=== PATIENT | female | born 1955 | race Caucasian/White ===

== ENCOUNTER 2019-10-24 16:27 | Inpatient (IN) ==
[2019-10-24] MEDS ORDERED: ONDANSETRON INJ 2 MG/ML 2 ML VIAL IV STA (17:01)
[2019-10-24] MEDS ORDERED: SODIUM CHLORIDE 0.9% 1000ML 1,000 ML IV ONE (17:01)
[2019-10-24] MEDS ORDERED: SUCRALFATE 1 GM TAB PO STA (17:01)
[2019-10-24] MEDS ORDERED: FAMOTIDINE 40 MG TABLET PO ONE (17:01)
[2019-10-24] MEDS ORDERED: GI COCKTAIL ED USE PO ONE (17:01)
[2019-10-24 17:09] LABS: Basophils # (auto) 0.02 K/uL (0-0.2); Basophils % (auto) 0.2 %; Eosinophils # (auto) 0.03 K/uL (0-0.5); Eosinophils % (auto) 0.2 %; Hematocrit (blood only) 43.6 % (37-47); Hemoglobin 15.2 g/dL (12.0-16.0); Immature Granulocytes # (auto) 0.04 K/uL (0.00-0.02); Immature Granulocytes % (auto) 0.3 %; Lymphocytes # (auto) 2.48 K/uL (1.2-3.4); Lymphocytes % (auto) 20.3 %; Mean Corpuscular Hemoglobin 32.3 pg (25-34); Mean Corpuscular Hgb Conc 34.9 g/dL (32-36); Mean Corpuscular Volume 92.6 fL (80-100); Mean Platelet Volume 11.4 fL (7.4-10.4); Monocytes # (auto) 1.64 K/uL (0.11-0.59); Monocytes % (auto) 13.4 %; Neutrophils # (auto) 8.03 K/uL (1.4-6.5); Neutrophils % (auto) 65.6 %; Platelet Count 217 K/uL (130-400); RDW Coefficient of Variation 13.5 % (11.5-14.5); RDW Standard Deviation 46.1 fL (36.4-46.3); Red Blood Count 4.71 M/uL (4.2-5.4); White Blood Count 12.24 K/uL (4.8-10.8)
[2019-10-24 17:10] LABS: Appearance Urine Cloudy (Clear); Bilirubin Urine Negative (Negative); Blood Urine Trace (Negative); Color Urine Yellow; Glucose Urine UA Negative (Negative); Ketones Urine Negative (Negative); Leukocyte Esterase Urine Negative (Negative); Nitrite Urine Negative (Negative); Specific Gravity Urine 1.015 (1.000-1.030); Urobilinogen Urine Negative (Negative); pH Urine 8.5 (4.5-7.5)
[2019-10-24 17:15] LABS: Protein Urine Negative (Negative); Sulfosalicylic Acid Urine Negative (Negative)
[2019-10-24 17:17] LABS: Alanine Aminotransferase 25 U/L (12-78); Aspartate Aminotransferase 15 U/L (15-37); BUN Creatinine Ratio 24.3 (10-20); Bacteria Urine 1+ (Negative); Blood Urea Nitrogen 23 mg/dl (7-18); Calcium 10.2 mg/dl (8.5-10.1); Carbon Dioxide 28 mmol/L (21-32); Chloride 103 mmol/L (98-107); Creatinine Clr Calc Pharmacy 43.6 ml/min; Est GFR (African American) 73.5; Est GFR (Non-African American) 63.4; Glucose 112 mg/dl (70-99); Lipase 202 U/L (73-393); RBC Urine 0-4 /hpf (0-4); Sodium 137 mmol/L (136-145); WBC Urine 0-5 /hpf (0-5)
[2019-10-24 17:22] LABS: Albumin Globulin Ratio 1.1 (0.9-2); Alkaline Phosphatase 87 U/L (45-117); Bilirubin,Total 0.4 mg/dl (0.2-1); Creatine Kinase 129 U/L (26-192); Creatine Kinase MB < 1.0 ng/ml (0.5-3.6); Globulin 3.7 gm/dl (2.5-4.0); Total Protein 7.7 gm/dl (6.4-8.2); Troponin I < 0.015 ng/ml (0-0.045)
[2019-10-24 17:29] LABS: iSTAT Creatinine 0.9 mg/dl (0.6-1.3); iSTAT Hemoglobin 13.9 g/dl (12.0-16.0); iSTAT Ionized Calcium 1.3 mmol/l (1.12-1.32); iSTAT Potassium 2.9 mEq/L (3.3-5.0)
[2019-10-24] MEDS ORDERED: POTASSIUM CHLORIDE 20 MEQ TABCR PO STA ×2 (17:30→19:57)
[2019-10-24] MEDS ORDERED: cefTRIAXone SODIUM 2,000 MG/70 ML BAG IV STA (17:40)
--- NOTE | 2019-10-24 17:51 | XRay Report ---
XR chest 1V portable CLINICAL HISTORY: 64 years-old Female presenting with Chest Pain. TECHNIQUE: Portable upright AP view of the chest was obtained. COMPARISON: None. FINDINGS: Atherosclerosis of the aortic arch. Cardiac silhouette normal in size. No focal opacity. No large eff usion or pneumothorax. Osseous structures normal. Upper abdomen normal. IMPRESSION: 1. No acute cardiopulmonary disease. Electronically signed by: Eron Tong M.D. 10/24/2019 5:50 PM
[2019-10-24] MEDS: POTASSIUM CHLORIDE / WTR 10 MEQ/100 ML PLCT IV SCH ×2 (18:00→19:17)
[2019-10-24] MEDS ORDERED: OPTIRAY 320 125ml IV PRN ×2 (19:21→21:49)
--- NOTE | 2019-10-24 19:50 | CT Scan Report ---
CT angio chest PE protocol CLINICAL HISTORY: 64 years-old Female presenting with atypical chest pain, clinical concern for pulmo nary embolus. TECHNIQUE: Multidetector CT angiography of the chest was performed after administration of intravenou s contrast. 3-D volumetric and/or maximum intensity projection (MIP) images were subsequently reconst ructed for review. IV contrast: 118 mL of Optiray 320. One or more dose lowering techniques were used consistent with the principles of ALARA (as low as reasonably achievable), including automatic expos ure control, mA or kV adjustment to individual patient size, and/or use of iterative reconstruction. COMPARISON: None. CT DOSE (mGy.cm): The estimated cumulative dose is 486.72 mGy.cm. FINDINGS: Electric Welder topogram: Unremarkable. Pulmonary vasculature: The study is adequate for assessment of the pulmonary vascular tree. No filling defect within the pul monary arteries to suggest embolus. Main pulmonary artery is not enlarged. No flattening of the inter ventricular septum. No intracardiac filling defect. No reflux of contrast into the hepatic veins. Remaining chest: Soft tissues: Normal thyroid and thoracic inlet. No axillary, supraclavicular, mediastinal, or hilar lymphadenopathy. Normal aorta. Normal heart size. No pericardial or pleural effusion. Trace hiatal he rnia. Suspected extensive submucosal edema and wall thickening of the stomach. Mild wall thickening o f the distal esophagus is also suggested. Lungs and airways: No pneumothorax. There is patent. Diffuse moderate bronchial wall thickening. Pulm onary arteries are not significantly enlarged relative to adjacent bronchi. No interlobular septal th ickening. Trace centrilobular upper lobe predominant emphysema. No focal infiltrate or nodule. Musculoskeletal: Normal osseous structures. IMPRESSION: 1. No evidence of pulmonary embolus. 2. Emphysema. 3. Diffuse bronchial wall thickening could relate to bronchitis in the setting of smoking related david ng injury or an infectious bronchitis or reactive airways disease. Electronically signed by: Eorn Tong M.D. 10/24/2019 7:48 PM
[2019-10-24] MEDS ORDERED: METOCLOPRAMIDE HCL INJ 5 MG/ML 2 ML VIAL IV STA (19:57)
--- NOTE | 2019-10-24 19:58 | CT Scan Report ---
CT abd pelvis IV con only CLINICAL HISTORY: 64 years-old Female presenting with Pt c/o abd pain. TECHNIQUE: Multidetector CT of the abdomen and pelvis was performed after the administration of intra venous contrast. IV contrast: 118 mL of Optiray 320. One or more dose lowering techniques were used c onsistent with the principles of ALARA (as low as reasonably achievable), including automatic exposur e control, mA or kV adjustment to individual patient size, and/or use of iterative reconstruction. COMPARISON: None. CT DOSE (mGy.cm): The estimated cumulative dose is 486.72. FINDINGS: S3B Multi Sensor Operator topogram: Unremarkable. Lung bases: Normal heart size. No pericardial or pleural effusion. No focal infiltrate or nodule at t he lung bases. Mild bronchial wall thickening. Liver: Normal morphology. Focal hypodensity along the fissure for the ligament teres likely perfusion al variation or focal fat. Patent hepatic vasculature. Biliary: No intrahepatic or extrahepatic biliary ductal dilatation. Normal gallbladder. Pancreas: Normal. Spleen: Normal. Adrenal glands: Normal. Kidneys and ureters: Normal. No hydronephrosis. Bladder: Circumferential bladder wall thickening. Pelvic organs: Uterus and ovaries normal. Bowel: Mild diverticulosis in the distal descending and proximal sigmoid colon. No wall thickening or pericolonic inflammatory change. Wall thickening of the ascending colon is suggested. The appendix i s normal. No bowel obstruction. Exuberant wall thickening of the stomach diffusely with mucosal hyper emia. The rugal folds are very large. Peritoneal cavity: No free fluid or intraperitoneal gas. Lymph nodes: No enlarged lymph nodes in the abdomen or pelvis. Vasculature: Atherosclerosis of the normal caliber abdominal aorta. IVC patent. Abdominal wall: Normal. Musculoskeletal: Normal. IMPRESSION: 1. Extensive gastric wall thickening and submucosal edema consistent with gastritis. Differential co nsiderations include Menetrier disease or gastric lymphoma. Gastroenterology consultation to be consi dered for possible nonurgent EGD. 2. Wall thickening of the ascending colon is also present to a much more limited extent and severity . This is most likely related, which could favor an infectious or inflammatory etiology to the gastri tis. 3. Circumferential bladder wall thickening could be due to underdistention or cystitis. Correlate urinalysis. 4. Bronchitis at the lung bases. Electronically signed by: Eron Tong M.D. 10/24/2019 7:57 PM
[2019-10-24] MEDS ORDERED: POTASSIUM CHLORIDE 20 MEQ/15 ML UDC PO STA (20:11)
[2019-10-24] MEDS ORDERED: LORazepam 2 MG/4 ML VIAL ONE ×2 (21:44→21:48)
[2019-10-24] MEDS ORDERED: LORazepam 2 MG/4 ML VIAL IV STA (21:47)
--- NOTE | 2019-10-24 22:13 | CT Scan Report ---
CT head/brain wo con CLINICAL HISTORY: 64 years-old Female presenting with Stroke evaluation, new onset seizures, inabilit y to see. TECHNIQUE: Multidetector CT imaging of the head was performed without the use of intravenous contrast . IV contrast: None. One or more dose lowering techniques were used consistent with the principles of ALARA (as low as reasonably achievable), including automatic exposure control, mA or kV adjustment t o individual patient size, and/or use of iterative reconstruction. COMPARISON: None. CT DOSE (mGy.cm): The estimated cumulative dose is 1114.73. FINDINGS: Antique Dealer topogram: Unremarkable. Ventricles and sulci normal in size. Limited evaluation for hemorrhage given residual intravascular c ontrast from the recent contrast load. Hyperattenuation within the sulci at the right frontoparietal vertex is therefore indeterminate (series 2 image 25). Similar findings elsewhere suggest that this r epresents intravascular contrast. Brain parenchyma normal in appearance with preserved trivedi-white dif ferentiation. No acute territorial infarct. No mass effect or midline shift. No extra-axial fluid col lection. Paranasal sinuses and mastoid air cells clear. Calvarium intact. IMPRESSION: 1. Limited evaluation by the recent contrast load. No gross acute intracranial pathology. A follow-u p noncontrast CT head is recommended depending on the level of clinical concern in 12 to 24 hours to allow sufficient excretion of contrast from the vasculature to improve sensitivity of the exam. Electronically signed by: Eron Tong M.D. 10/24/2019 10:12 PM
--- NOTE | 2019-10-24 22:20 | CT Scan Report ---
CT angio head w con CLINICAL HISTORY: 64 years-old Female presenting with Pt unable to see. TECHNIQUE: Multidetector CT angiography of the head was performed after the administration of intrave nous contrast. 3-D volumetric and/or maximum intensity projection (MIP) images were subsequently davina nstructed for review. IV contrast: 118 mL of Optiray 320. One or more dose lowering techniques were u sed consistent with the principles of ALARA (as low as reasonably achievable), including automatic ex posure control, mA or kV adjustment to individual patient size, and/or use of iterative reconstructio n. COMPARISON: None. CT DOSE (mGy.cm): The estimated cumulative dose is 1114.73 mGy.cm. FINDINGS: Film Developer topogram: Unremarkable. Anterior circulation: Intracranial portions of the internal carotid arteries patent to the level of t he termini. Anterior cerebral arteries patent. Middle cerebral arteries patent. Anterior communicatin g artery patent. Posterior circulation: Codominant vertebral arteries. Intradural portions of the vertebral arteries p atent. Posterior inferior cerebellar arteries patent. Basilar artery patent. Anterior inferior cerebe llar arteries poorly visualized. Superior cerebellar arteries patent. Posterior cerebral arteries pat ent. Posterior communicating arteries patent. Dural venous sinuses: Patent. Asymmetric early opacification of the left cavernous sinus. No abnormal distention of the superior ophthalmic veins. Other: Allowing for the phase of contrast, brain parenchyma within normal limits. Calvarium intact. IMPRESSION: 1. No evidence of aneurysm, focal vessel occlusion, or significant stenosis of the intracranial parker josias. 2. Asymmetric early opacification of the left cavernous sinus. No additional findings to suggest the presence of a carotid cavernous fistula. This may represent normal variation with early filling. Cor relate clinically. Electronically signed by: Eron Tong M.D. 10/24/2019 10:19 PM
--- NOTE | 2019-10-24 22:25 | CT Scan Report ---
CT angio neck with con CLINICAL HISTORY: 64 years-old Female presenting with Pt unable to see, new onset seizure. TECHNIQUE: Multidetector CT angiography of the neck was performed after the administration of intrave nous contrast. 3-D volumetric and/or maximum intensity projection (MIP) images were subsequently davina nstructed for review. IV contrast: 118 mL of Optiray 320. One or more dose lowering techniques were u sed consistent with the principles of ALARA (as low as reasonably achievable), including automatic ex posure control, mA or kV adjustment to individual patient size, and/or use of iterative reconstructio n. Stenosis measurements were based on NASCET-like criteria (distal lumen diameter as the denominator for stenosis measurement). COMPARISON: None. CT DOSE (mGy.cm): The estimated cumulative dose is 1114.73. FINDINGS: Recruiting And Selection Consultant topogram: Unremarkable. Aortic arch: Normal three-vessel aortic arch with patent origins of the branch vessels. Innominate artery: Patent. Right subclavian artery: Patent. Right common carotid artery: Patent. Right internal and external carotid arteries: Right carotid bifurcation with trace calcified and nonc alcified atherosclerotic plaque. This does not result in significant stenosis. Right internal and ext ernal carotid arteries widely patent. Left common carotid artery: Patent. Left internal and external carotid arteries: Left carotid bifurcation patent. Left internal and exter nal carotid arteries widely patent. Left subclavian artery: Patent. Vertebral arteries: Codominant vertebral arteries. Origins and courses of the bilateral vertebral art eries patent. Other: Limited intracranial evaluation within normal limits. Soft tissues of the neck normal allowing for the phase of contrast. Normal cervical spine. Mild bronchial wall thickening and trace emphysema at the lung apices. This likely represents smoking-related lung injury. IMPRESSION: 1. No evidence of dissection, focal vessel occlusion, or significant stenosis of the cervical arteri es. Electronically signed by: Eron Tong M.D. 10/24/2019 10:24 PM
--- NOTE | 2019-10-24 23:43 | History & Physical Report ---
Date of Service October 24, 2019 Assessment & Plan (1) Observed seizure-like activity: Patient was noted by ED staff to have seizure-like activity as she is being readied for discharge. Her notes that she had abnormal vision as 1 of the reasons for bringing her into the ED, but could not specify exactly what the abnormality was. CT of head, CTA head and neck are all normal. We will place order for MRI of brain without contrast and EEG for the morning. Patient has received Keppra IV in the ED. We will hold on further treatment until assessed by neurology, will be consulted for the a.m. Present on Admission?: Yes (2) GERD (gastroesophageal reflux disease): N.p.o. Placed on famotidine 20 mg IV every 12 hours. Present on Admission?: Yes (3) Hyperlipidemia: Hold atorvastatin 20 mg p.o. daily while n.p.o. Present on Admission?: Yes (4) Hypothyroidism (acquired): Hold levothyroxine sodium 75 mcg p.o. daily while n.p.o. Present on Admission?: Yes (5) Elevated d-dimer: CT scan of chest negative for PE There is a suggestion of possible emphysema/bronchitis or reactive airway disease. Monitor for aspiration. DuoNeb 4 times daily as needed. Present on Admission?: Yes (6) Vomiting: No further Reglan. Placed on Zofran 4 mg IV every 6 hours as needed nausea and/or vomiting. Present on Admission?: Yes (7) Acute hypokalemia: Placed on NSS + KCl 20 mEq at 100 mL's per hour. Repeat laboratories in a.m. Present on Admission?: Yes History of Present Illness Chief Complaint: The patient initially presented to the emergency department with family member, due to nausea and vomiting over the past 3 days, and change in vision. Primary Care Provider: Jerrod Sherman The patient is a 64-year-old female with a past medical history including GERD, hyperlipidemia and hypothyroidism, who presents to the emergency department with nausea and vomiting over the past 2 to 3 days, with the addition of blurred vision today. At the time of my examination, the patient is obtunded, not responsive, and information is provided by her significant other. Allergies Allergy/AdvReac Type Severity Reaction Status Date / Time metoclopramide [From Reglan] Allergy Seizure Verified 10/24/19 22:55 Home Medications Home Medications Medication Instructions Recorded Confirmed Type atorvastatin 20 mg PO DAILY 10/24/19 10/24/19 History levothyroxine [Synthroid] 75 mcg PO DAILY 10/24/19 10/24/19 History Past Med/Surg History Medical History GERD (gastroesophageal reflux disease) Social History Feels Safe at Home: Yes Smoking Status: Former smoker Review of Systems Review of Systems: Unobtainable due to reduced consciousness Physical Exam Physical Exam: The patient is obtunded, nonresponsive post seizure. Well developed and well nourished, normocephalic and atraumatic, lying in bed and in no acute distress. HEENT--PERRL, EOMI, mucous membranes and oropharynx dry. Neck--supple. No JVD. No bruits. Thyroid normal, trachea midline, no adenopathy. Heart--normal S1 and S2. No murmurs, rubs or gallops. Lungs--clear bilaterally, no respiratory distress, no accessory muscle use. Abdomen--normal bowel sounds and soft. Nontender. Nondistended. Extremities--no cyanosis or clubbing. No edema. Dermatologic--normal skin turgor, normal color, no abnormal lymph nodes, no rash. Neurologic--cranial nerves II through XII grossly intact. Rheumatologic--normal range of motion. Psychiatric--obtunded and unresponsive Results & Data Vital Signs (Past 12 Hours) Vital Signs Temp Pulse Pulse Resp BP BP Pulse Ox 10/24/19 23:18 86 14 107/79 99 10/24/19 22:45 93 H 14 103/69 100 10/24/19 22:31 99 H 14 99 10/24/19 22:30 100 H 13 105/71 99 10/24/19 22:15 108 H 15 114/62 99 10/24/19 22:03 110 H 14 112/50 L 100 10/24/19 22:01 113 H 10/24/19 21:47 117 H 14 158/78 H 98 10/24/19 21:44 144 H 10/24/19 21:37 131/73 10/24/19 20:00 76 20 167/77 H 97 10/24/19 18:30 79 20 166/89 H 97 10/24/19 17:01 99 10/24/19 16:31 98.6 F 84 20 181/87 H 94 Laboratory Results Laboratory Results WBC 12.24 K/uL (4.8-10.8) H 10/24/19 16:50 RBC 4.71 M/uL (4.2-5.4) 10/24/19 16:50 Hgb 15.2 g/dL (12.0-16.0) 10/24/19 16:50 POC Hgb 13.9 g/dl (12.0-16.0) 10/24/19 17:17 Hct 43.6 % (37-47) 10/24/19 16:50 POC Hct 41 % (37-47) 10/24/19 17:17 MCV 92.6 fL (80-100) 10/24/19 16:50 MCH 32.3 pg (25-34) 10/24/19 16:50 MCHC 34.9 g/dL (32-36) 10/24/19 16:50 RDW Std Deviation 46.1 fL (36.4-46.3) 10/24/19 16:50 RDW Coeff of Zeyad 13.5 % (11.5-14.5) 10/24/19 16:50 Plt Count 217 K/uL (130-400) 10/24/19 16:50 MPV 11.4 fL (7.4-10.4) H 10/24/19 16:50 Immature Gran % (Auto) 0.3 % 10/24/19 16:50 Neut % (Auto) 65.6 % 10/24/19 16:50 Lymph % (Auto) 20.3 % 10/24/19 16:50 [place] % (Auto) 13.4 % 10/24/19 16:50 Eos % (Auto) 0.2 % 10/24/19 16:50 Baso % (Auto) 0.2 % 10/24/19 16:50 Immature Gran # (Auto) 0.04 K/uL (0.00-0.02) H 10/24/19 16:50 Neut # (Auto) 8.03 K/uL (1.4-6.5) H 10/24/19 16:50 Lymph # (Auto) 2.48 K/uL (1.2-3.4) 10/24/19 16:50 [place] # (Auto) 1.64 K/uL (0.11-0.59) H 10/24/19 16:50 Eos # (Auto) 0.03 K/uL (0-0.5) 10/24/19 16:50 Baso # (Auto) 0.02 K/uL (0-0.2) 10/24/19 16:50 POC D-Dimer > 450 ng/mlFEU (0-450) H* 10/24/19 17:14 POC Sodium 138 mEq/L (135-144) 10/24/19 17:17 Sodium 137 mmol/L (136-145) 10/24/19 16:50 POC Potassium 2.9 mEq/L (3.3-5.0) L 10/24/19 17:17 Potassium 3.0 mmol/L (3.5-5.1) L 10/24/19 16:50 POC Chloride 101 mEq/L (101-112) 10/24/19 17:17 Chloride 103 mmol/L (98-107) 10/24/19 16:50 Carbon Dioxide 28 mmol/L (21-32) 10/24/19 16:50 POC Total CO2 27 mEq/l (24-31) 10/24/19 17:17 Anion Gap 6.0 (3-11) 10/24/19 16:50 POC Anion Gap 14.0 mmol/L (16-25) L 10/24/19 17:17 POC BUN 22 mg/dl (7-18) H 10/24/19 17:17 BUN 23 mg/dl (7-18) H 10/24/19 16:50 Creatinine 0.96 mg/dl (0.6-1.2) 10/24/19 16:50 POC Creatinine 0.9 mg/dl (0.6-1.3) 10/24/19 17:17 Est Cr Clr Drug Dosing 43.6 ml/min 10/24/19 16:50 Est GFR ( Amer) 73.5 10/24/19 16:50 Est GFR (Non-Af Amer) 63.4 10/24/19 16:50 BUN/Creatinine Ratio 24.3 (10-20) H 10/24/19 16:50 Glucose 112 mg/dl (70-99) H 10/24/19 16:50 POC Glucose 93 (70-99) 10/24/19 21:31 POC Glucose (other) 116 mg/dl (70-99) H 10/24/19 17:17 Calcium 10.2 mg/dl (8.5-10.1) H 10/24/19 16:50 POC Ioniz Calcium Joshua 1.30 mmol/l (1.12-1.32) 10/24/19 17:17 Magnesium 2.3 mg/dl (1.8-2.4) 10/24/19 16:50 Total Bilirubin 0.4 mg/dl (0.2-1) 10/24/19 16:50 AST 15 U/L (15-37) 10/24/19 16:50 ALT 25 U/L (12-78) 10/24/19 16:50 Alkaline Phosphatase 87 U/L (45-117) 10/24/19 16:50 Total Creatine Kinase 129 U/L (26-192) 10/24/19 16:50 CK-MB (CK-2) < 1.0 ng/ml (0.5-3.6) 10/24/19 16:50 CK/CKMB % Calc TNP 10/24/19 16:50 Troponin I < 0.015 ng/ml (0-0.045) 10/24/19 16:50 Total Protein 7.7 gm/dl (6.4-8.2) 10/24/19 16:50 Albumin 4.0 gm/dl (3.4-5.0) 10/24/19 16:50 Globulin 3.7 gm/dl (2.5-4.0) 10/24/19 16:50 Albumin/Globulin Ratio 1.1 (0.9-2) 10/24/19 16:50 Lipase 202 U/L (73-393) 10/24/19 16:50 Urine Color Yellow 10/24/19 16:50 Urine Appearance Cloudy (Clear) A 10/24/19 16:50 Urine pH 8.5 (4.5-7.5) H 10/24/19 16:50 Ur Specific [place] 1.015 (1.000-1.030) 10/24/19 16:50 Urine Protein Negative (Negative) 10/24/19 16:50 Urine Glucose (UA) Negative (Negative) 10/24/19 16:50 Urine Ketones Negative (Negative) 10/24/19 16:50 Urine Blood Trace (Negative) H 10/24/19 16:50 Urine Nitrite Negative (Negative) 10/24/19 16:50 Urine Bilirubin Negative (Negative) 10/24/19 16:50 Urine Urobilinogen Negative (Negative) 10/24/19 16:50 Ur Leukocyte Esterase Negative (Negative) 10/24/19 16:50 Urine RBC 0-4 /hpf (0-4) 10/24/19 16:50 Urine WBC 0-5 /hpf (0-5) 10/24/19 16:50 Ur Epithelial Cells 10-20 /lpf (0-5) H 10/24/19 16:50 Urine Bacteria 1+ (Negative) H 10/24/19 16:50 Diagnostic Findings [place] [phone] CT Scan Report Patient: CLIVE MADSEN Date: 10/24/19 MR#: [id number]: [address] [facility] Acct ID:[id number]: Date: 1955[facility] Zip: [place] [address] Age: 64Location: ED Sex: F Room/Bed: Att Phy:Diagnosis: SICK TO STOMACH, CANT EAT, LIGHTHEADED Rosanne Phy: Hernan Sherman Date: 10/24/19 Fam Phy:Interpreting Phy: Eron Tong MD Admit Phy: Ordering Phy: Panchito Magallon MD cc: ~ CT abd pelvis IV con only CLINICAL HISTORY: 64 years-old Female presenting with Pt c/o abd pain. TECHNIQUE: Multidetector CT of the abdomen and pelvis was performed after the administration of intravenous contrast. IV contrast: 118 mL of Optiray 320. One or more dose lowering techniques were used consistent with the principles of ALARA (as low as reasonably achievable), including automatic exposure control, mA or kV adjustment to individual patient size, and/or use of iterative reconstruction. COMPARISON: None. CT DOSE (mGy.cm): The estimated cumulative dose is 486.72. FINDINGS: Post Framer topogram: Unremarkable. Lung bases: Normal heart size. No pericardial or pleural effusion. No focal infiltrate or nodule at the lung bases. Mild bronchial wall thickening. Liver: Normal morphology. Focal hypodensity along the fissure for the ligament teres likely perfusional variation or focal fat. Patent hepatic vasculature. Biliary: No intrahepatic or extrahepatic biliary ductal dilatation. Normal gallbladder. Pancreas: Normal. Spleen: Normal. Adrenal glands: Normal. Kidneys and ureters: Normal. No hydronephrosis. Bladder: Circumferential bladder wall thickening. Pelvic organs: Uterus and ovaries normal. Bowel: Mild diverticulosis in the distal descending and proximal sigmoid colon. No wall thickening or pericolonic inflammatory change. Wall thickening of the ascending colon is suggested. The appendix is normal. No bowel obstruction. Exuberant wall thickening of the stomach diffusely with mucosal hyperemia. The rugal folds are very large. Peritoneal cavity: No free fluid or intraperitoneal gas. Lymph nodes: No enlarged lymph nodes in the abdomen or pelvis. Vasculature: Atherosclerosis of the normal caliber abdominal aorta. IVC patent. Abdominal wall: Normal. Musculoskeletal: Normal. IMPRESSION: 1. Extensive gastric wall thickening and submucosal edema consistent with gastritis. Differential considerations include Menetrier disease or gastric lymphoma. Gastroenterology consultation to be considered for possible nonurgent EGD. 2. Wall thickening of the ascending colon is also present to a much more limited extent and severity. This is most likely related, which could favor an infectious or inflammatory etiology to the gastritis. 3. Circumferential bladder wall thickening could be due to underdistention or cystitis. Correlate with urinalysis. 4. Bronchitis at the lung bases. Electronically signed by: Eron Tong M.D. 10/24/2019 7:57 PM Dictated: 10/24/191951 Transcribed: 10/24/191951 [place] [phone] XRay Report Patient: CLIVE MADSEN Date: 10/24/19 MR#: [id number]: [address] Acct ID:[id number]: Date: 1955[facility] Zip: [place] [address] Age: 64Location: ED Sex: F Room/Bed: Att Phy:Diagnosis: SICK TO STOMACH, CANT EAT, LIGHTHEADED Rosanne Phy: Hernan Sherman Date: 10/24/19 Fam Phy:Interpreting Phy: Eron Tong MD Admit Phy: Ordering Phy: Panchito Magallon MD cc: ~ XR chest 1V portable CLINICAL HISTORY: 64 years-old Female presenting with Chest Pain. TECHNIQUE: Portable upright AP view of the chest was obtained. COMPARISON: None. FINDINGS: Atherosclerosis of the aortic arch. Cardiac silhouette normal in size. No focal opacity. No large effusion or pneumothorax. Osseous structures normal. Upper abdomen normal. IMPRESSION: 1. No acute cardiopulmonary disease. Electronically signed by: Eron Tong M.D. 10/24/2019 5:50 PM Dictated: 10/24/191748 Transcribed: 10/24/191748 [place], [place] [phone] CT Scan Report Patient: CLIVE MADSEN Date: 10/24/19 MR#: [id number]: [address] Acct ID:[id number]: Date: 1955[facility] Zip: [place] [address] Age: 64Location: ED Sex: F Room/Bed: Att Phy:Diagnosis: SICK TO STOMACH, CANT EAT, LIGHTHEADED Rosanne Phy: Hernan Sherman Date: 10/24/19 [facility] Phy:Interpreting Phy: Eron Tong MD Admit Phy: Ordering Phy: Panchito Magallon MD cc: ~ CT angio chest PE protocol CLINICAL HISTORY: 64 years-old Female presenting with atypical chest pain, clinical concern for pulmonary embolus. TECHNIQUE: Multidetector CT angiography of the chest was performed after administration of intravenous contrast. 3-D volumetric and/or maximum intensity projection (MIP) images were subsequently reconstructed for review. IV contrast: 118 mL of Optiray 320. One or more dose lowering techniques were used consistent with the principles of ALARA (as low as reasonably achievable), including automatic exposure control, mA or kV adjustment to individual patient size, and/or use of iterative reconstruction. COMPARISON: None. CT DOSE (mGy.cm): The estimated cumulative dose is 486.72 mGy.cm. FINDINGS: Post Framer topogram: Unremarkable. Pulmonary vasculature: The study is adequate for assessment of the pulmonary vascular tree. No filling defect within the pulmonary arteries to suggest embolus. Main pulmonary artery is not enlarged. No flattening of the interventricular septum. No intracardiac filling defect. No reflux of contrast into the hepatic veins. Remaining chest: Soft tissues: Normal thyroid and thoracic inlet. No axillary, supraclavicular, mediastinal, or hilar lymphadenopathy. Normal aorta. Normal heart size. No pericardial or pleural effusion. Trace hiatal hernia. Suspected extensive submucosal edema and wall thickening of the stomach. Mild wall thickening of the distal esophagus is also suggested. Lungs and airways: No pneumothorax. There is patent. Diffuse moderate bronchial wall thickening. Pulmonary arteries are not significantly enlarged relative to adjacent bronchi. No interlobular septal thickening. Trace centrilobular upper lobe predominant emphysema. No focal infiltrate or nodule. Musculoskeletal: Normal osseous structures. IMPRESSION: 1. No evidence of pulmonary embolus. 2. Emphysema. 3. Diffuse bronchial wall thickening could relate to bronchitis in the setting of smoking related lung injury or an infectious bronchitis or reactive airways disease. Electronically signed by: Eron Tong M.D. 10/24/2019 7:48 PM Dictated: 10/24/191938 Transcribed: 10/24/191944 [place] [phone] CT Scan Report Patient: CLIVE MADSEN DAdmit Date: 10/24/19 MR#: [id number]: [address] [facility] Acct ID:[id number]: Date: 1955[facility] Zip: [place] [address] Age: 64Location: ED Sex: F Room/Bed: Att Phy:Diagnosis: SICK TO STOMACH, CANT EAT, LIGHTHEADED Rosanne Phy: Hernan Sherman Date: 10/24/19 [facility] Phy:Interpreting Phy: Eron Tong MD Admit Phy: Ordering Phy: Panchito Magallon MD cc: ~ CT head/brain wo con CLINICAL HISTORY: 64 years-old Female presenting with Stroke evaluation, new onset seizures, inability to see. TECHNIQUE: Multidetector CT imaging of the head was performed without the use of intravenous contrast. IV contrast: None. One or more dose lowering techniques were used consistent with the principles of ALARA (as low as reasonably achievable), including automatic exposure control, mA or kV adjustment to individual patient size, and/or use of iterative reconstruction. COMPARISON: None. CT DOSE (mGy.cm): The estimated cumulative dose is 1114.73. FINDINGS: Post Framer topogram: Unremarkable. [place] [phone] CT Scan Report Patient: CLIVE MADSEN Date: 10/24/19 MR#: [id number]: [address] Acct ID:[id number]: Date: 1955[facility] Zip: [place] [address] Age: 64Location: ED Sex: F Room/Bed: Att Phy:Diagnosis: SICK TO STOMACH, CANT EAT, LIGHTHEADED Rosanne Phy: Hernan Sherman Date: 10/24/19 Fam Phy:Interpreting Phy: Eron Togn MD Admit Phy: Ordering Phy: Panchito Magallon MD cc: ~ CT angio head w con CLINICAL HISTORY: 64 years-old Female presenting with Pt unable to see. TECHNIQUE: Multidetector CT angiography of the head was performed after the administration of intravenous contrast. 3-D volumetric and/or maximum intensity projection (MIP) images were subsequently reconstructed for review. IV contrast: 118 mL of Optiray 320. One or more dose lowering techniques were used consistent with the principles of ALARA (as low as reasonably achievable), including automatic exposure control, mA or kV adjustment to individual patient size, and/or use of iterative reconstruction. COMPARISON: None. CT DOSE (mGy.cm): The estimated cumulative dose is 1114.73 mGy.cm. FINDINGS: Post Framer topogram: Unremarkable. Anterior circulation: Intracranial portions of the internal carotid arteries patent to the level of the termini. Anterior cerebral arteries patent. Middle cerebral arteries patent. Anterior communicating artery patent. Posterior circulation: Codominant vertebral arteries. Intradural portions of the vertebral arteries patent. Posterior inferior cerebellar arteries patent. Basilar artery patent. Anterior inferior cerebellar arteries poorly visualized. Superior cerebellar arteries patent. Posterior cerebral arteries patent. Posterior communicating arteries patent. Dural venous sinuses: Patent. Asymmetric early opacification of the left cavernous sinus. No abnormal distention of the superior ophthalmic veins. Other: Allowing for the phase of contrast, brain parenchyma within normal limits. Calvarium intact. IMPRESSION: 1. No evidence of aneurysm, focal vessel occlusion, or significant stenosis of the intracranial arteries. 2. Asymmetric early opacification of the left cavernous sinus. No additional findings to suggest the presence of a carotid cavernous fistula. This may represent normal variation with early filling. Correlate clinically. Electronically signed by: Eron Tong M.D. 10/24/2019 10:19 PM Dictated: 10/24/192211 Transcribed: 10/24/192211 [place], [place] [phone] CT Scan Report Patient: CLIVE MADSEN Date: 10/24/19 MR#: [id number]: [address] Acct ID:[id number]: Date: 1955[facility] Zip: [place] [address] Age: 64Location: ED Sex: F Room/Bed: Att Phy:Diagnosis: SICK TO STOMACH, CANT EAT, LIGHTHEADED Rosanne Phy: Hernan Sherman Date: 10/24/19 [facility] Phy:Interpreting Phy: Eron Tong MD Admit Phy: Ordering Phy: Panchito Magallon MD cc: ~ CT angio neck with con CLINICAL HISTORY: 64 years-old Female presenting with Pt unable to see, new onset seizure. TECHNIQUE: Multidetector CT angiography of the neck was performed after the administration of intravenous contrast. 3-D volumetric and/or maximum intensity projection (MIP) images were subsequently reconstructed for review. IV contrast: 118 mL of Optiray 320. One or more dose lowering techniques were used consistent with the principles of ALARA (as low as reasonably achievable), including automatic exposure control, mA or kV adjustment to individual patient size, and/or use of iterative reconstruction. Stenosis measurements were based on NASCET-like criteria (distal lumen diameter as the denominator for stenosis measurement). COMPARISON: None. CT DOSE (mGy.cm): The estimated cumulative dose is 1114.73. FINDINGS: Post Framer topogram: Unremarkable. Aortic arch: Normal three-vessel aortic arch with patent origins of the branch vessels. Innominate artery: Patent. Right subclavian artery: Patent. Right common carotid artery: Patent. Right internal and external carotid arteries: Right carotid bifurcation with trace calcified and noncalcified atherosclerotic plaque. This does not result in significant stenosis. Right internal and external carotid arteries widely patent. Left common carotid artery: Patent. Left internal and external carotid arteries: Left carotid bifurcation patent. Left internal and external carotid arteries widely patent. Left subclavian artery: Patent. Vertebral arteries: Codominant vertebral arteries. Origins and courses of the bilateral vertebral arteries patent. Other: Limited intracranial evaluation within normal limits. Soft tissues of the neck normal allowing for the phase of contrast. Normal cervical spine. Mild bronchial wall thickening and trace emphysema at the lung apices. This likely represents smoking-related lung injury. IMPRESSION: 1. No evidence of dissection, focal vessel occlusion, or significant stenosis of the cervical arteries. Electronically signed by: Eron Tong M.D. 10/24/2019 10:24 PM Dictated: 10/24/192218 Transcribed: 10/24/192218 Code Status & VTE Plan Code Status Full code VTE Prophylaxis Plan VTE Prophylaxis will be ordered: Yes PG Care Time/CCT Total # of Minutes Spent Total Time Spent with Patient: Total time spent is greater than 50% in coordination of care (as documented) at patient's floor/unit and/or counseling patient: (1) Vomiting Nausea presence: unspecified Vomiting Intractability: unspecified Vomiting type: unspecified Qualified Code(s): R11.10 - Vomiting, unspecified
[2019-10-25] MEDS ORDERED: ONDANSETRON INJ 2 MG/ML 2 ML VIAL IV PRN (00:52)
[2019-10-25] MEDS: NSS + 20MEQ KCL 20 MEQ/1,000 ML BAG IV SCH ×3 (01:25→20:40)
[2019-10-25] MEDS ORDERED: HEPARIN SOD 5,000 UNIT/0.5 ML VIAL SQ SCH (09:00)
--- NOTE | 2019-10-25 10:42 | Magnetic Resonance Report ---
MRI OF THE BRAIN WITHOUT IV CONTRAST CLINICAL HISTORY: Seizure. Upper and lower extremity weakness. COMPARISON STUDY: CT of the brain dated 10/24/2019. TECHNIQUE: MRI of the brain was performed utilizing various T1 and T2-weighted sequences in the axial , sagittal, and coronal planes. IV contrast was not administered for this examination. The examinatio n is performed using the seizure protocol. FINDINGS: Brain parenchyma: There is significant T2 signal abnormality with mild edema identified within the bi lateral parietal and occipital cortex. This shows restricted diffusion. Mild signal abnormality is al so identified within the left basal ganglia involving the left thalamus. There is serpiginous cortica l susceptibility artifact identified within the right occipital lobe on axial image #13 and #14 which likely represents blood products. No additional foci of hemorrhage are identified. There is no midli ne shift. There is no restricted diffusion typical for acute ischemia. No extra-axial fluid collectio n is seen. The cerebellar tonsils are normal in configuration. The I are normal and symmetric. Ventricles, sulci, and cisterns: Normal in configuration. Pituitary and sella: Unremarkable. Intracranial vasculature: Normal flow voids are maintained at the skull base. Orbits: The bony orbits are grossly intact. Orbital contents are normal in appearance. Sinuses and mastoids: Clear. Calvarium: Unremarkable. Cervical cord: Partially visualized cervical spinal cord is normal in morphology and signal intensity . IMPRESSION: 1. There is significant signal abnormality and edema identified involving the bilateral parietal and occipital lobe cortex, as well as the left basal ganglia. This is pathologically indeterminant, and t he distribution strongly suggests PRES. A nonspecific encephalitis could also have this appearance. C linical correlation will be essential. 2. There is likely a small focus of acute appearing hemorrhage involving the right occipital lobe cor luann. 3. No additional foci of hemorrhage are identified. There is no midline shift or evidence of acute is chemia. Findings were discussed with Dr. Hsu at the time of interpretation. Electronically signed by: Fabian Yoder M.D. 10/25/2019 10:40 AM
[2019-10-25 16:03] LABS: Amphetamines+Metham, Urine Neg (Neg); Barbiturates, Urine Neg (Neg); Benzodiazepine, Urine Neg (Neg); Cocaine, Urine Neg (Neg); MDMA (Ecstacy), Urine Neg (Neg); Methadone, Urine Neg (Neg); Opiate, Urine Neg (Neg); Phencyclidine, Urine Neg (Neg)
--- NOTE | 2019-10-25 16:16 | Neurology Consultation ---
Date of Consultation October 25, 2019 Assessment & Plan (1) PRES (posterior reversible encephalopathy syndrome): Marjorie Kirk is a 64 yo woman w/ PMH of hypothyroidism, GERD, hyperlipidemia and tobacco abuse who p/t [facility] for evaluation of nausea/vomiting x3 days, AMS and change in vision, found to have PRES on MRI after a new onset seizure. # PRES: unclear cause, she was hypertensive when she first arrived in the ED but quickly normalized to normotension. She is not on any medications known to trigger PRES (cyclosporine/immunosuppressants), nor does she have a known underlying condition that could cause PRES (transplant, eclampsia, autoimmune condition such as lupus, TTP-HUS, renal disease). She could have an underlying infection that triggered PRES given her gastric and colonic wall thickening that should be further worked up. - recommend sending the following lab work to determine possible underlying cause: MIKAL screen, RF, ANCA, cryoglobulins, SSA/SSB - would recommend having GI evaluate her for GI infection/IBD as that could potentially be a cause for PRES - CAP 160, IV labetalol prn - seizure precautions, would recommend starting keppra 500mg bid (will discuss in follow up appointment tapering off as long as imaging normalizes) - DMV form, no driving for 6 months - repeat MRI brain with and without contrast in 4-6 weeks to ensure resolution of signal abnormalities and follow up suspected ICH (ok to have imaging performed at [facility] if they can bring the disc to f/u appt) - follow up in neurology clinic in 6-8 weeks after repeat MRI brain obtained Thank you for this interesting consult. Please text or call with questions. (2) Gastric wall thickening: (3) Observed seizure-like activity: History of Present Illness Attending Physician: Amparo Forrester MD History of Present Illness Marjorie Kirk is a 64 yo woman w/ PMH of hypothyroidism, GERD, hyperlipidemia and tobacco abuse who p/t [facility] for evaluation of nausea/vomiting x3 days, AMS and change in vision. History obtained from patient, family and chart review. They report that she has about a 1 year history of intermittent N/V that has previously been worked up at [facility]. About 3 days ago, she started to have another episode of nausea/vomiting and feeling generally unwell. She endorsed having chills, but denied headache, fever, neck stiffness/pain, numbness, tingling or weakness at the time. Yesterday (10/24), family noticed that she was acting strange (couldn't stir the macaronis or put on her jacket). She also reported having decreased vision and was "blind" after her event in the ED. She p/t the ED, where CT A/P was notable for mild diverticulosis in the distal descending/proximal sigmoid colon, wall thickening of the ascending colon and stomach with mucosal hyperemia (with large rugal folds) c/f gastritis vs Menetrier disease vs gastric lymphoma. CXR showed no pneumonia. CTA PE showed no PE, emphysema and diffuse bronchial thickening c/w bronchitis 2/2 tobacco abuse. Independent review of CTH showed no hemorrhage or hypodensity. CTA head and neck showed no LVO, high grade stenosis or aneurysm, ?early opacification of the left cavernous sinus. Labs were notable for WBC 12.24, Hb 15.9, Plts 217, elevated d dimer, Na 137, K 3.0, BUN 23, Cr 0.96, glucose 112, ionized calcium 1.3, Mg 2.3, troponin negative, LFTs WNL, lipase WNL, UA trace blood, elevated pH 8.5, and 1+ bacteria. UDS negative. reports that they were on their way out of the ED when she took her right arm and started waving it in the air, followed by a GTC that he believes lasted 10 minutes. Denies tongue biting, + loss of bladder, no loss of bowel. She received 2mg ativan and a 1g keppra load and was admitted for further workup. MRI brain shows T2 hyperintensities (some with associated diffusion restriction) in bilateral parieto-occipital lobes and left basal ganglia, as well as a small ICH in the right occipital lobe. Of note, BP peaked at 181/87 on initial evaluation in the ED but otherwise has been in the 100-130s systolic. On examination today, she reports that she could not see anything for awhile after the seizure event last night. She reports that her vision complaints have resolved. She was noted to have arm and leg weakness this morning but she reports that those have resolved as well. Denies any current headache, numbness, tingling. Denies any family history of autoimmune conditions. 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 Physical Exam Physical Exam: General Exam: GEN: NAD, sitting in bed. HEENT: No conjunctival injection, no rhinorrhea. CV: RRR, no peripheral edema PULM: Nonlabored respirations on room air. Neuro Exam: MS: Awake and Alert. Oriented to person, place, and date (off by one day, thought it was 10/24). Speech fluent and appropriate without dysarthria or paraphasic errors. Language intact including naming, comprehension, repetition. Cognition grossly intact, subtle issues with memory involving the last few days. Attention intact. No neglect. CN: Left inferior quadrantopia most noticeable in the left eye. No extinction to double simultaneous stimuli. No optic disc edema on fundoscopic exam. PERRLA OU. Right partial CN 6 palsy but otherwise normal EOMs. Facial sensation intact to LT. Facial muscles full and symmetric. Hearing intact to conversation. Uvula midline with symmetric palatal elevation. Shoulder shrug normal. Tongue midline. MOTOR: Normal bulk and tone. No pronator drift. LUE strength 5/5 at deltoids, biceps, triceps, wrist flexors and extensors, and hand grasp. RUE strength 5-/5 at deltoids, biceps, triceps, wrist flexors and extensors, and hand grasp. BLE strength 5/5 at iliopsoas, hamstrings, quadriceps, tibialis anterior, and gastrocnemius bilaterally. REFLEXES: 1+ at biceps, triceps, brachioradialis, 2+ patella and 1+ Achilles bilaterally. Flexor plantar responses bilaterally. SENSORY: Intact to LT without extinction to double simultaneous stimuli. Vibration and temperature intact throughout. COORDINATION: No dysmetria or ataxia on [id number] bilaterally. Normal Amparo bilaterally. GAIT: deferred given physical status/fall risk/seizure precautions Results & Data Vital Signs (Past 12 Hours) Vital Signs Temp Pulse Pulse Pulse Resp BP BP 10/25/19 15:35 37.0 C 76 18 136/77 10/25/19 15:30 89 10/25/19 09:51 85 10/25/19 07:05 36.5 C 88 16 133/84 10/25/19 06:00 36.9 C 83 18 130/73 10/25/19 04:22 36.8 C 79 20 129/75 Pulse Ox 10/25/19 15:35 96 10/25/19 15:30 10/25/19 09:51 10/25/19 07:05 100 10/25/19 06:00 96 10/25/19 04:22 100 PG Care Time/CCT Total # of Minutes Spent Total Time Spent with Patient: Total time spent is greater than 50% in coordination of care (as documented) at patient's floor/unit and/or counseling patient:
--- NOTE | 2019-10-25 16:40 | Hospitalist Progress Note ---
Date of Service October 25, 2019 Assessment & Plan (1) PRES (posterior reversible encephalopathy syndrome): Patient is a 64 year old female with PMHx HLD and Hypothyroidism that had a witnessed seizure like activity while preparing for discharge at the ED. Seizure Like activity 2/2 PRES -Seizure like activity noted while patient was in being discharged in ED. -Patient's noted that she had been having abnormal vision the past day as well as her N/V symptoms -IV Keppra given while patient was in the ED. -Neurology consulted, appreciate recs -MIKAL screen, RF, ANCA, Cryoglobulins, SSA/SSB labs ordered -IV Labetalol 10mg PRN Systolic BP >160 -Seizure precautions, Keppra 500mg BID started - will discuss tapering off at outpatient appointment -DMV form, no driving x6 months -Repeat MRI Brain w and w/o contrast in 4-6 weeks after d/c -Follow up neuro clinic 6-8 weeks -MRI Brain without contrast showed signs concerning for Posterior Reversible Encephalopathy Syndrome (PRES) and R occipital hemorrhage -UDS ordered to screen any toxic abnormalities that may have contributed to symptoms. -EEG ordered showing slight abnormality with generalized slowing with a borderline low PDR suggestive of generalized process such as encephalopathy, toxic-metabolic dysfunction, or generalized insult. No seizures or epileptiform discharges seen. Acute Hypokalemia -Placed on NSS_KCL 20mEq at 100mL/hr on admission -BUN in AM. Gastric Wall Thickening -Extensive gastric wall thickening and submucosal edema consistent with gastritis on Abdomen/Pelv CT -Consider GI consult for future nonurgent EGD. Elevated D-Dimer -D-Dimer Elevated on admission. -CT of chest negative for PE. Hypothyroidism -Continue home levothyroxine HLD -Continue home atorvastatin Nausea and Vomiting -Resolved -Zofran PRN nausea FEN/GI - Full Liquid Dinner, [employer] breakfast in AM, NSS +20 meq KCl 100ml/hr Code - Full DVT - Stopped Heparin 2/2 concern for R occipital hemorrhage Dispo - Med/Surg Tele, anticipate home tomorrow. (2) Observed seizure-like activity: (3) Acute hypokalemia: (4) Gastric wall thickening: (5) Elevated d-dimer: (6) Hypothyroidism (acquired): (7) Hyperlipidemia: (8) Vomiting: Supervising Physician Co-Signing Physician Notes Resident Physician Supervision Note: I independently interviewed and examined the patient and verified the rodriguez history and physical, reviewed labs and image studies, discussed the case with the resident Dr. Hsu and agree with the findings and care plan. Subjective Patient seen and examined this AM at the bedside. Patient stated that she was feeling much better this morning and that the weakness she had noted in her L arm and R leg had resolved. She states that she is no longer having the nausea or blurry vision as well this morning. She does state that her father had a seizure 1 month ago, but that he does not have a diagnosis either. She states that the nausea and vomiting had been an ongoing problem on and off for almost 1 year now. She has no other complaints at this time. Review of Systems Constitutional: + fatigue; no fever and no chills Eyes: no eye pain and no photophobia Ear, Nose, Mouth, Throat: no tinnitus and no dizziness Respiratory: no cough, no dyspnea and no pain on inspiration Cardiovascular: no chest pain, no dyspnea on exertion, no palpitations, no lightheadedness, no edema and no calf pain Gastrointestinal: no abdominal pain, no nausea and no vomiting Genitourinary: no dysuria and no hematuria Musculoskeletal: no back pain and no radicular pain Integumentary: no rash Neurologic: + generalized weakness and + seizure-like activity; no paralysis, no numbness, no dizziness, no headache(s) and no confusion Physical Exam Constitutional: WD/WN, vitals as above Eyes: PERRL, conjunctivae normal, anicteric sclerae normal visual rodriges by confrontation ENMT: external ear and nose normal, oropharynx normal Neck: trachea midline, no thyromegaly Respiratory: normal respiratory effort, lungs clear to auscultation Cardiovascular: RRR, no murmur, no edema Heart Sounds: normal S1 and normal S2 Extremities: no calf tenderness and no edema Gastrointestinal (Abdomen): normal bowel sounds, soft, nontender, no hepatosplenomegaly Musculoskeletal: no cyanosis or clubbing, extremities motor strength 5/5 Skin: no rashes, warm and dry Neurologic: patellar DTR's 2+ bilat, sensation intact moves all extremities and awake; not confused and not obtunded Speech / Cognition: normal speech Motor/Sensory: no tremor and normal movement Cranial Nerves: PERRL, normal accommodation, EOM intact bilaterally (R CN palsy, but otherwise intact), normal facial strength, tongue midline, normal gag reflex, normal hearing, able to rotate head bilaterally, able to elevate shoulders bilaterally and symmetric palate elevation Coordination: normal [id number] test and normal rapid alternating movements Psychiatric: A+Ox3, euthymic affect Results & Data Vital Signs (Past 12 Hours) Vital Signs Temp Pulse Pulse Pulse Resp BP BP 10/25/19 15:35 37.0 C 76 18 136/77 10/25/19 15:30 89 10/25/19 09:51 85 10/25/19 07:05 36.5 C 88 16 133/84 10/25/19 06:00 36.9 C 83 18 130/73 Pulse Ox 10/25/19 15:35 96 10/25/19 15:30 10/25/19 09:51 10/25/19 07:05 100 10/25/19 06:00 96 Medications Administered Current Inpatient Medications Heparin Sodium (Porcine) (Heparin Sodium (Porcine)) 5,000 units SQ Q12 MARK Stop: 11/24/19 08:59 Last Admin: 10/25/19 07:27 Dose: 5,000 units Documented by: Potassium Chloride/Sodium Chloride (Normal Saline W/20 Meq Kcl) 20 meq in 1,000 mls @ 100 mls/hr IV .Q10H MARK Stop: 11/24/19 00:51 Last Admin: 10/25/19 10:19 Dose: 100 mls/hr Documented by: Ioversol (Optiray 320 125ml) 118 ml IV ONCE PRN PRN Reason: Interaction Checking Stop: 10/28/19 19:20 Last Admin: 10/24/19 19:22 Dose: 1 ml Documented by: Ioversol (Optiray 320 125ml) 118 ml IV ONCE PRN PRN Reason: Interaction Checking Stop: 10/28/19 21:48 Last Admin: 10/24/19 21:50 Dose: 1 ml Documented by: Levetiracetam (Keppra) 500 mg PO BID MARK Stop: 11/24/19 20:59 Ondansetron HCl (Zofran) 4 mg IV Q6H PRN PRN Reason: Nausea Stop: 11/24/19 00:51 (1) Vomiting Nausea presence: unspecified Vomiting Intractability: unspecified Vomiting type: unspecified Qualified Code(s): R11.10 - Vomiting, unspecified
--- NOTE | 2019-10-25 16:58 | Electroencephalogram ---
EEG Procedure Note Date of Service October 25, 2019 Start / End Times Start Time: 8:26am End Time: 8:46am Referring Physician Dr. Hsu History 64 yo woman being evaluated for seizure in setting of PRES Home Medication List Home Medications Medication Instructions Recorded Confirmed Type atorvastatin 20 mg PO DAILY 10/24/19 10/24/19 History levothyroxine [Synthroid] 75 mcg PO DAILY 10/24/19 10/24/19 History Inpatient Medication List Heparin Sodium (Porcine) (Heparin Sodium (Porcine)) 5,000 units SQ Q12 MARK Stop: 11/24/19 08:59 Last Admin: 10/25/19 07:27 Dose: 5,000 units Documented by: [id number] Cosigned by: [id number] Potassium Chloride/Sodium Chloride (Normal Saline W/20 Meq Kcl) 20 meq in 1,000 mls @ 100 mls/hr IV .Q10H MARK Stop: 11/24/19 00:51 Last Admin: 10/25/19 10:19 Dose: 100 mls/hr Documented by: [id number] Infusion: 10/25/19 10:19 Dose: 100 mls/hr Documented by: [id number] Admin: 10/25/19 01:25 Dose: 100 mls/hr Documented by: [id number] Ioversol (Optiray 320 125ml) 118 ml IV ONCE PRN PRN Reason: Interaction Checking Stop: 10/28/19 19:20 Last Admin: 10/24/19 19:22 Dose: 1 ml Documented by: [id number] Ioversol (Optiray 320 125ml) 118 ml IV ONCE PRN PRN Reason: Interaction Checking Stop: 10/28/19 21:48 Last Admin: 10/24/19 21:50 Dose: 1 ml Documented by: [id number] Discontinued Medications Al Hydrox/Mg Hydrox/Simethicone () 1 dose PO ONE ONE Stop: 10/24/19 17:02 Last Admin: 10/24/19 17:35 Dose: 1 dose Documented by: [id number] Famotidine (Pepcid) 40 mg PO NOW ONE Stop: 10/24/19 17:02 Last Admin: 10/24/19 17:35 Dose: 40 mg Documented by: [id number] Sodium Chloride (Nss 1000ml) 1,000 mls @ 999 mls/hr IV .Q1H1M ONE Stop: 10/24/19 18:01 Last Infusion: 10/24/19 18:44 Dose: 0 mls/hr Documented by: [id number] Admin: 10/24/19 17:35 Dose: 999 mls/hr Documented by: [id number] Potassium Chloride (K Moose / Wtr) 10 meq in 100 mls @ 100 mls/hr IV Q1H MARK Stop: 10/24/19 19:29 Last Infusion: 10/24/19 20:34 Dose: 0 mls/hr Documented by: [id number] Admin: 10/24/19 19:17 Dose: 100 mls/hr Documented by: [id number] Infusion: 10/24/19 19:15 Dose: 0 mls/hr Documented by: [id number] Admin: 10/24/19 18:00 Dose: 100 mls/hr Documented by: [id number] Ceftriaxone Sodium (Rocephin) 2,000 mg in 70 mls @ 140 mls/hr IV NOW STA Stop: 10/24/19 18:09 Last Infusion: 10/24/19 18:44 Dose: 0 mls/hr Documented by: [id number] Admin: 10/24/19 18:01 Dose: 140 mls/hr Documented by: [id number] Levetiracetam 1,000 mg/ (Dextrose) 110 mls @ 440 mls/hr IV NOW STA Stop: 10/24/19 22:01 Last Infusion: 10/24/19 22:55 Dose: 0 mls/hr Documented by: [id number] Admin: 10/24/19 22:33 Dose: 440 mls/hr Documented by: [id number] Lorazepam (Ativan) 2 mg in 4 mls @ 4 mls/min IV NOW STA Stop: 10/24/19 21:48 Last Admin: 10/24/19 21:48 Dose: 4 mls/min Documented by: [id number] Lorazepam (Ativan) Confirm Administered Dose 2 mg .ROUTE .STK-MED ONE Stop: 10/24/19 21:45 Last Admin: 10/24/19 22:10 Dose: Not Given Documented by: [id number] Lorazepam (Ativan) Confirm Administered Dose 2 mg .ROUTE .STK-MED ONE Stop: 10/24/19 21:49 Last Admin: 10/24/19 22:10 Dose: Not Given Documented by: [id number] Metoclopramide HCl (Reglan) 10 mg IV NOW STA Stop: 10/24/19 19:58 Last Admin: 10/24/19 20:15 Dose: 10 mg Documented by: [id number] Ondansetron HCl (Zofran) 4 mg IV NOW STA Stop: 10/24/19 17:02 Last Admin: 10/24/19 17:35 Dose: 4 mg Documented by: [id number] Potassium Chloride (Klor-Con M20) 40 meq PO NOW STA Stop: 10/24/19 17:31 Last Admin: 10/24/19 17:59 Dose: 40 meq Documented by: [id number] Potassium Chloride (Klor-Con M20) 40 meq PO NOW STA Stop: 10/24/19 19:58 Last Admin: 10/24/19 20:20 Dose: Not Given Documented by: [id number] Potassium Chloride (Marina Ciel Elix) 40 meq PO NOW STA Stop: 10/24/19 20:12 Last Admin: 10/24/19 20:20 Dose: 40 meq Documented by: [id number] Sucralfate (Carafate Tab) 1 gm PO NOW STA Stop: 10/24/19 17:02 Last Admin: 10/24/19 17:35 Dose: 1 gm Documented by: [id number] Description This is a 21 electrode EEG with a single channel dedicated to limited EKG. The electrodes were placed in accordance with the International 10-20 system. History: 64 yo woman w/ PMH of GERD, hyperlipidemia and hypothyroidism who p/t [facility] with nausea/vomiting and AMS, found to have PRES on MRI after seizure-like event witnesse in ED Rx: sedrick de [place] evening prior to EEG Start/Stop: 8:26am/8:46am Attending reading: Kayy Perkins EEG Description: EEG background: Background was normal voltage with predominantly alpha rhythm intermixed with theta slowing. A well formed 8-9 Hz posterior dominant rhythm was observed. The EEG is continuous. There is variability and reactivity present. Activation and reactivity: Photic stimulation performed without any abnormalities noted. No photic driving observed. Hyperventilation was not performed. Sleep: Patient was drowsy but did not enter higher levels of sleep. Epileptiform discharges: No epileptiform discharges were observed. Rhythmic and periodic patterns: None Seizures: None Impression: This was a mildly abnormal EEG given generalized slowing with a borderline low PDR suggestive of a generalized process such as encephalopathy, toxic-metabolic dysfunction or generalized insult. No seizures or epileptiform discharges were seen. [facility] EEG Procedure Codes Indication for Procedure (1) PRES (posterior reversible encephalopathy syndrome): (2) Observed seizure-like activity:
[2019-10-25] MEDS ORDERED: LABETALOL HCL IV 5 MG/ML 20ML IV STA (18:50)
[2019-10-25] MEDS ORDERED: LABETALOL HCL IV 5 MG/ML 20ML IV PRN (19:29)
--- NOTE | 2019-10-25 20:16 | Emergency Department Note ---
Entered by Marilee Napoles acting as a scribe for History of Present Illness General Chief complaint: Illness Stated complaint: SICK TO STOMACH, CANT EAT, LIGHTHEADED Time Seen by Provider: 10/24/19 16:43 Source: patient Mode of arrival: ambulatory Limitations: no limitations History of Present Illness Onset (ago): day(s) 4 Location: abdomen Radiation: non-radiation Pain Consistency: + constant Relieved By: + none Exacerbated By: + none Associated symptoms: + nausea/vomiting and + other (-abdominal pain) Treatments prior to arrival: none The patient is a 64 year old female who presents to the ED with complaints of a persistent illness. She states she started vomiting 4 days ago. She has experienced similar episodes in the past but states she has never undergone an endoscopy before. The last time she vomited was some time this morning. She denies any abdominal pain but admits to feeling a sensation like "heartburn" in her abdomen. She has seen Cisco Gomez several times in the past for her symptoms, but states "nothing has been done". Home Medications Home Medications Medication Instructions Recorded Confirmed Type atorvastatin 20 mg PO DAILY 10/24/19 10/24/19 History levothyroxine [Synthroid] 75 mcg PO DAILY 10/24/19 10/24/19 History Allergies Allergy/AdvReac Type Severity Reaction Status Date / Time metoclopramide [From Reglan] Allergy Seizure Verified 10/24/19 22:55 Past Med/Surg History Medical History GERD (gastroesophageal reflux disease) Hyperlipidemia Hypothyroidism (acquired) Social History Preferred Language: Korean Communication Ability: Effective Animal Cruelty Investigation Supervisor Required: No Beliefs That Will Affect Care: Jew Jew Beliefs: Worship marital status: Current Living Situation: Spouse Feels Safe at Home: Yes Smoking Status: Current every day smoker Tobacco Type: cigarettes ; Cigarettes Per Day: 1/2 pack per day ; Hx Alcohol Use: No Hx Substance Use: No Review of Systems See HPI for pertinent positives & negatives. and A total of 10 systems reviewed and were otherwise negative Physical Exam Vital Signs Vital Signs - 24 hr 10/24/19 21:37 10/24/19 21:44 10/24/19 21:47 Pulse Rate 144 H 117 H Pulse Rate from SpO2 Sensor 117 H Respiratory Rate 14 Blood Pressure 131/73 158/78 H Blood Pressure Mean 86 99 Pulse Oximetry 98 10/24/19 22:01 10/24/19 22:03 10/24/19 22:15 Pulse Rate 113 H 110 H 108 H Pulse Rate from SpO2 Sensor 110 H 108 H Respiratory Rate 14 15 Blood Pressure 112/50 L 114/62 Blood Pressure Mean 76 77 Pulse Oximetry 100 99 10/24/19 22:30 10/24/19 22:31 10/24/19 22:45 Pulse Rate 100 H 99 H 93 H Pulse Rate from SpO2 Sensor 99 H 99 H 93 H Respiratory Rate 13 14 14 Blood Pressure 105/71 103/69 Blood Pressure Mean 84 82 Pulse Oximetry 99 99 100 GENERAL: Awake, alert, well-appearing, in no acute distress HENT: Normocephalic, atraumatic. Oropharynx unremarkable. EYES: Normal conjunctiva. Sclera non-icteric. NECK: Supple. No nuchal rigidity. FROM. No JVD. RESPIRATORY: Clear to auscultation. CARDIAC: Regular rate, normal rhythm. Extremities warm and well perfused. Pulses equal. ABDOMEN: Soft, non-distended. No tenderness to palpation. No rebound or guarding. No masses. RECTAL: Deferred. MUSCULOSKELETAL: Chest examination reveals no tenderness. The back is symmetrical on inspection without obvious abnormality. There is no CVA tenderness to palpation. No joint edema. LOWER EXTREMITIES: Calves are equal size bilaterally and non-tender. No edema. No discoloration. NEURO: Normal sensorium. No sensory or motor deficits noted. SKIN: No rash or jaundice noted. Course Course 1654: The patient was evaluated in room A9 and a complete history and physical were performed. 2009: I went to reevaluate the patient but she is in the bathroom. I will try back. 2024: I reevaluated the patient. She is feeling better. I discussed her results and discharge instructions and she is agreeable with discharge home. 2141: Nursing informed me the patient is seizing. 2142: I reevaluated the patient. We will take her to CT scan. 2229: I discussed the patients case [facility] The patient will be further evaluated. Administered Medications Heparin Sodium (Porcine) (Heparin Sodium (Porcine)) 5,000 units SQ Q12 MARK Stop: 01/15/20 08:59 Last Admin: 10/25/19 07:27 Dose: 5,000 units Documented by: [id number] Cosigned by: [id number] Potassium Chloride/Sodium Chloride (Normal Saline W/20 Meq Kcl) 20 meq in 1,000 mls @ 100 mls/hr IV .Q10H MARK Stop: 11/24/19 00:51 Last Admin: 10/25/19 10:19 Dose: 100 mls/hr Documented by: [id number] Infusion: 10/25/19 10:19 Dose: 100 mls/hr Documented by: [id number] Admin: 10/25/19 01:25 Dose: 100 mls/hr Documented by: [id number] Ioversol (Optiray 320 125ml) 118 ml IV ONCE PRN PRN Reason: Interaction Checking Stop: 10/28/19 19:20 Last Admin: 10/24/19 19:22 Dose: 1 ml Documented by: [id number] Ioversol (Optiray 320 125ml) 118 ml IV ONCE PRN PRN Reason: Interaction Checking Stop: 10/28/19 21:48 Last Admin: 10/24/19 21:50 Dose: 1 ml Documented by: [id number] Discontinued Medications Al Hydrox/Mg Hydrox/Simethicone () 1 dose PO ONE ONE Stop: 10/24/19 17:02 Last Admin: 10/24/19 17:35 Dose: 1 dose Documented by: [id number] Famotidine (Pepcid) 40 mg PO NOW ONE Stop: 10/24/19 17:02 Last Admin: 10/24/19 17:35 Dose: 40 mg Documented by: [id number] Sodium Chloride (Nss 1000ml) 1,000 mls @ 999 mls/hr IV .Q1H1M ONE Stop: 10/24/19 18:01 Last Infusion: 10/24/19 18:44 Dose: 0 mls/hr Documented by: [id number] Admin: 10/24/19 17:35 Dose: 999 mls/hr Documented by: [id number] Potassium Chloride (K Moose / Wtr) 10 meq in 100 mls @ 100 mls/hr IV Q1H MARK Stop: 10/24/19 19:29 Last Infusion: 10/24/19 20:34 Dose: 0 mls/hr Documented by: [id number] Admin: 10/24/19 19:17 Dose: 100 mls/hr Documented by: [id number] Infusion: 10/24/19 19:15 Dose: 0 mls/hr Documented by: [id number] Admin: 10/24/19 18:00 Dose: 100 mls/hr Documented by: [id number] Ceftriaxone Sodium (Rocephin) 2,000 mg in 70 mls @ 140 mls/hr IV NOW STA Stop: 10/24/19 18:09 Last Infusion: 10/24/19 18:44 Dose: 0 mls/hr Documented by: [id number] Admin: 10/24/19 18:01 Dose: 140 mls/hr Documented by: [id number] Levetiracetam 1,000 mg/ (Dextrose) 110 mls @ 440 mls/hr IV NOW STA Stop: 10/24/19 22:01 Last Infusion: 10/24/19 22:55 Dose: 0 mls/hr Documented by: [id number] Admin: 10/24/19 22:33 Dose: 440 mls/hr Documented by: [id number] Lorazepam (Ativan) 2 mg in 4 mls @ 4 mls/min IV NOW STA Stop: 10/24/19 21:48 Last Admin: 10/24/19 21:48 Dose: 4 mls/min Documented by: [id number] Labetalol HCl (Normodyne) 10 mg IV NOW STA Stop: 10/25/19 18:51 Last Admin: 10/25/19 19:47 Dose: 10 mg Documented by: [id number] Cosigned by: [id number] Lorazepam (Ativan) Confirm Administered Dose 2 mg .ROUTE .STK-MED ONE Stop: 10/24/19 21:45 Last Admin: 10/24/19 22:10 Dose: Not Given Documented by: [id number] Lorazepam (Ativan) Confirm Administered Dose 2 mg .ROUTE .STK-MED ONE Stop: 10/24/19 21:49 Last Admin: 10/24/19 22:10 Dose: Not Given Documented by: [id number] Metoclopramide HCl (Reglan) 10 mg IV NOW STA Stop: 10/24/19 19:58 Last Admin: 10/24/19 20:15 Dose: 10 mg Documented by: [id number] Ondansetron HCl (Zofran) 4 mg IV NOW STA Stop: 10/24/19 17:02 Last Admin: 10/24/19 17:35 Dose: 4 mg Documented by: [id number] Potassium Chloride (Klor-Con M20) 40 meq PO NOW STA Stop: 10/24/19 17:31 Last Admin: 10/24/19 17:59 Dose: 40 meq Documented by: [id number] Potassium Chloride (Klor-Con M20) 40 meq PO NOW STA Stop: 10/24/19 19:58 Last Admin: 10/24/19 20:20 Dose: Not Given Documented by: [id number] Potassium Chloride (Marina Ciel Elix) 40 meq PO NOW STA Stop: 10/24/19 20:12 Last Admin: 10/24/19 20:20 Dose: 40 meq Documented by: [id number] Sucralfate (Carafate Tab) 1 gm PO NOW STA Stop: 10/24/19 17:02 Last Admin: 10/24/19 17:35 Dose: 1 gm Documented by: [id number] Medical Decision Making Differential Diagnosis Differential diagnoses includes but is not limited to acute coronary syndrome, myocardial infarction, pericarditis, pulmonary embolus, aortic dissection, pneumonia, pneumothorax, musculoskeletal, shingles, esophageal. Medical Records Attestation: I reviewed the patient's medical records. Home Medications Current Medication List: was personally reviewed by me Laboratory Data Attestation: I reviewed the patient's lab results. Result diagrams: 10/24/19 16:50 10/24/19 16:50 Lab Results 10/24/19 10/24/19 10/24/19 Range/Units 16:50 16:50 16:50 WBC 12.24 H (4.8-10.8) K/uL RBC 4.71 (4.2-5.4) M/uL Hgb 15.2 (12.0-16.0) g/dL POC Hgb (12.0-16.0) g/dl Hct 43.6 (37-47) % POC Hct (37-47) % MCV 92.6 (80-100) fL MCH 32.3 (25-34) pg MCHC 34.9 (32-36) g/dL RDW Std Deviation 46.1 (36.4-46.3) fL RDW Coeff of Zeyad 13.5 (11.5-14.5) % Plt Count 217 (130-400) K/uL MPV 11.4 H (7.4-10.4) fL Immature Gran % (Auto) 0.3 % Neut % (Auto) 65.6 % Lymph % (Auto) 20.3 % [place] % (Auto) 13.4 % Eos % (Auto) 0.2 % Baso % (Auto) 0.2 % Immature Gran # (Auto) 0.04 H (0.00-0.02) K/uL Neut # (Auto) 8.03 H (1.4-6.5) K/uL Lymph # (Auto) 2.48 (1.2-3.4) K/uL [place] # (Auto) 1.64 H (0.11-0.59) K/uL Eos # (Auto) 0.03 (0-0.5) K/uL Baso # (Auto) 0.02 (0-0.2) K/uL POC D-Dimer (0-450) ng/mlFEU POC Sodium (135-144) mEq/L Sodium 137 (136-145) mmol/L POC Potassium (3.3-5.0) mEq/L Potassium 3.0 L (3.5-5.1) mmol/L POC Chloride (101-112) mEq/L Chloride 103 (98-107) mmol/L Carbon Dioxide 28 (21-32) mmol/L POC Total CO2 (24-31) mEq/l Anion Gap 6.0 (3-11) POC Anion Gap (16-25) mmol/L POC BUN (7-18) mg/dl BUN 23 H (7-18) mg/dl Creatinine 0.96 (0.6-1.2) mg/dl POC Creatinine (0.6-1.3) mg/dl Est Cr Clr Drug Dosing 43.6 ml/min Est GFR ( Amer) 73.5 Est GFR (Non-Af Amer) 63.4 BUN/Creatinine Ratio 24.3 H (10-20) Glucose 112 H (70-99) mg/dl POC Glucose (70-99) POC Glucose (other) (70-99) mg/dl Calcium 10.2 H (8.5-10.1) mg/dl POC Ioniz Calcium Joshua (1.12-1.32) mmol/l Magnesium (1.8-2.4) mg/dl Total Bilirubin 0.4 (0.2-1) mg/dl AST 15 (15-37) U/L ALT 25 (12-78) U/L Alkaline Phosphatase 87 (45-117) U/L Total Creatine Kinase 129 (26-192) U/L CK-MB (CK-2) < 1.0 (0.5-3.6) ng/ml CK/CKMB % Calc TNP Troponin I < 0.015 (0-0.045) ng/ml Total Protein 7.7 (6.4-8.2) gm/dl Albumin 4.0 (3.4-5.0) gm/dl Globulin 3.7 (2.5-4.0) gm/dl Albumin/Globulin Ratio 1.1 (0.9-2) Lipase 202 (73-393) U/L Urine Color Yellow Urine Appearance Cloudy A (Clear) Urine pH 8.5 H (4.5-7.5) Ur Specific [place] 1.015 (1.000-1.030) Urine Protein Negative (Negative) Urine Glucose (UA) Negative (Negative) Urine Ketones Negative (Negative) Urine Blood Trace H (Negative) Urine Nitrite Negative (Negative) Urine Bilirubin Negative (Negative) Urine Urobilinogen Negative (Negative) Ur Leukocyte Esterase Negative (Negative) Urine RBC 0-4 (0-4) /hpf Urine WBC 0-5 (0-5) /hpf Ur Epithelial Cells 10-20 H (0-5) /lpf Urine Bacteria 1+ H (Negative) 10/24/19 10/24/19 10/24/19 Range/Units 16:50 17:14 17:17 WBC (4.8-10.8) K/uL RBC (4.2-5.4) M/uL Hgb (12.0-16.0) g/dL POC Hgb 13.9 (12.0-16.0) g/dl Hct (37-47) % POC Hct 41 (37-47) % MCV (80-100) fL MCH (25-34) pg MCHC (32-36) g/dL RDW Std Deviation (36.4-46.3) fL RDW Coeff of Zeyad (11.5-14.5) % Plt Count (130-400) K/uL MPV (7.4-10.4) fL Immature Gran % (Auto) % Neut % (Auto) % Lymph % (Auto) % [place] % (Auto) % Eos % (Auto) % Baso % (Auto) % Immature Gran # (Auto) (0.00-0.02) K/uL Neut # (Auto) (1.4-6.5) K/uL Lymph # (Auto) (1.2-3.4) K/uL [place] # (Auto) (0.11-0.59) K/uL Eos # (Auto) (0-0.5) K/uL Baso # (Auto) (0-0.2) K/uL POC D-Dimer > 450 H* (0-450) ng/mlFEU POC Sodium 138 (135-144) mEq/L Sodium (136-145) mmol/L POC Potassium 2.9 L (3.3-5.0) mEq/L Potassium (3.5-5.1) mmol/L POC Chloride 101 (101-112) mEq/L Chloride (98-107) mmol/L Carbon Dioxide (21-32) mmol/L POC Total CO2 27 (24-31) mEq/l Anion Gap (3-11) POC Anion Gap 14.0 L (16-25) mmol/L POC BUN 22 H (7-18) mg/dl BUN (7-18) mg/dl Creatinine (0.6-1.2) mg/dl POC Creatinine 0.9 (0.6-1.3) mg/dl Est Cr Clr Drug Dosing ml/min Est GFR ( Amer) Est GFR (Non-Af Amer) BUN/Creatinine Ratio (10-20) Glucose (70-99) mg/dl POC Glucose (70-99) POC Glucose (other) 116 H (70-99) mg/dl Calcium (8.5-10.1) mg/dl POC Ioniz Calcium Joshua 1.30 (1.12-1.32) mmol/l Magnesium 2.3 (1.8-2.4) mg/dl Total Bilirubin (0.2-1) mg/dl AST (15-37) U/L ALT (12-78) U/L Alkaline Phosphatase (45-117) U/L Total Creatine Kinase (26-192) U/L CK-MB (CK-2) (0.5-3.6) ng/ml CK/CKMB % Calc Troponin I (0-0.045) ng/ml Total Protein (6.4-8.2) gm/dl Albumin (3.4-5.0) gm/dl Globulin (2.5-4.0) gm/dl Albumin/Globulin Ratio (0.9-2) Lipase (73-393) U/L Urine Color Urine Appearance (Clear) Urine pH (4.5-7.5) Ur Specific [place] (1.000-1.030) Urine Protein (Negative) Urine Glucose (UA) (Negative) Urine Ketones (Negative) Urine Blood (Negative) Urine Nitrite (Negative) Urine Bilirubin (Negative) Urine Urobilinogen (Negative) Ur Leukocyte Esterase (Negative) Urine RBC (0-4) /hpf Urine WBC (0-5) /hpf Ur Epithelial Cells (0-5) /lpf Urine Bacteria (Negative) 10/24/19 Range/Units 21:31 WBC (4.8-10.8) K/uL RBC (4.2-5.4) M/uL Hgb (12.0-16.0) g/dL POC Hgb (12.0-16.0) g/dl Hct (37-47) % POC Hct (37-47) % MCV (80-100) fL MCH (25-34) pg MCHC (32-36) g/dL RDW Std Deviation (36.4-46.3) fL RDW Coeff of Zeyad (11.5-14.5) % Plt Count (130-400) K/uL MPV (7.4-10.4) fL Immature Gran % (Auto) % Neut % (Auto) % Lymph % (Auto) % [place] % (Auto) % Eos % (Auto) % Baso % (Auto) % Immature Gran # (Auto) (0.00-0.02) K/uL Neut # (Auto) (1.4-6.5) K/uL Lymph # (Auto) (1.2-3.4) K/uL [place] # (Auto) (0.11-0.59) K/uL Eos # (Auto) (0-0.5) K/uL Baso # (Auto) (0-0.2) K/uL POC D-Dimer (0-450) ng/mlFEU POC Sodium (135-144) mEq/L Sodium (136-145) mmol/L POC Potassium (3.3-5.0) mEq/L Potassium (3.5-5.1) mmol/L POC Chloride (101-112) mEq/L Chloride (98-107) mmol/L Carbon Dioxide (21-32) mmol/L POC Total CO2 (24-31) mEq/l Anion Gap (3-11) POC Anion Gap (16-25) mmol/L POC BUN (7-18) mg/dl BUN (7-18) mg/dl Creatinine (0.6-1.2) mg/dl POC Creatinine (0.6-1.3) mg/dl Est Cr Clr Drug Dosing ml/min Est GFR ( Amer) Est GFR (Non-Af Amer) BUN/Creatinine Ratio (10-20) Glucose (70-99) mg/dl POC Glucose 93 (70-99) POC Glucose (other) (70-99) mg/dl Calcium (8.5-10.1) mg/dl POC Ioniz Calcium Joshua (1.12-1.32) mmol/l Magnesium (1.8-2.4) mg/dl Total Bilirubin (0.2-1) mg/dl AST (15-37) U/L ALT (12-78) U/L Alkaline Phosphatase (45-117) U/L Total Creatine Kinase (26-192) U/L CK-MB (CK-2) (0.5-3.6) ng/ml CK/CKMB % Calc Troponin I (0-0.045) ng/ml Total Protein (6.4-8.2) gm/dl Albumin (3.4-5.0) gm/dl Globulin (2.5-4.0) gm/dl Albumin/Globulin Ratio (0.9-2) Lipase (73-393) U/L Urine Color Urine Appearance (Clear) Urine pH (4.5-7.5) Ur Specific [place] (1.000-1.030) Urine Protein (Negative) Urine Glucose (UA) (Negative) Urine Ketones (Negative) Urine Blood (Negative) Urine Nitrite (Negative) Urine Bilirubin (Negative) Urine Urobilinogen (Negative) Ur Leukocyte Esterase (Negative) Urine RBC (0-4) /hpf Urine WBC (0-5) /hpf Ur Epithelial Cells (0-5) /lpf Urine Bacteria (Negative) Imaging Data Radiologist's Impression: Radiology results as stated below per my review and the radiologist's interpretation: XR chest 1V portable CLINICAL HISTORY: 64 years-old Female presenting with Chest Pain. TECHNIQUE: Portable upright AP view of the chest was obtained. COMPARISON: None. FINDINGS: Atherosclerosis of the aortic arch. Cardiac silhouette normal in size. No focal opacity. No large effusion or pneumothorax. Osseous structures normal. Upper abdomen normal. IMPRESSION: 1. No acute cardiopulmonary disease. Electronically signed by: Eron Tong M.D. 10/24/2019 5:50 PM CLINICAL HISTORY: 64 years-old Female presenting with Pt c/o abd pain. TECHNIQUE: Multidetector CT of the abdomen and pelvis was performed after the administration o CT abd pelvis IV con only f intravenous contrast. IV contrast: 118 mL of Optiray 320. One or more dose lowering techniques were used consistent with the principles of ALARA (as low as reasonably achievable), including automatic exposure control, mA or kV adjustment to individual patient size, and/or use of iterative reconstruction. COMPARISON: None. CT DOSE (mGy.cm): The estimated cumulative dose is 486.72. FINDINGS: Bonded Strand Operator topogram: Unremarkable. Lung bases: Normal heart size. No pericardial or pleural effusion. No focal infiltrate or nodule at the lung bases. Mild bronchial wall thickening. Liver: Normal morphology. Focal hypodensity along the fissure for the ligament teres likely perfusional variation or focal fat. Patent hepatic vasculature. Biliary: No intrahepatic or extrahepatic biliary ductal dilatation. Normal gallbladder. Pancreas: Normal. Spleen: Normal. Adrenal glands: Normal. Kidneys and ureters: Normal. No hydronephrosis. Bladder: Circumferential bladder wall thickening. Pelvic organs: Uterus and ovaries normal. Bowel: Mild diverticulosis in the distal descending and proximal sigmoid colon. No wall thickening or pericolonic inflammatory change. Wall thickening of the ascending colon is suggested. The appendix is normal. No bowel obstruction. Exuberant wall thickening of the stomach diffusely with mucosal hyperemia. The rugal folds are very large. Peritoneal cavity: No free fluid or intraperitoneal gas. No enlarged lymph nodes in the abdomen or pelvis. Vasculature: Atherosclerosis of the normal caliber abdominal aorta. IVC patent. Abdominal wall: Normal. Musculoskeletal: Normal. IMPRESSION: 1. Extensive gastric wall thickening and submucosal edema consistent with gastritis. Differential considerations include Menetrier disease or gastric lymphoma. Gastroenterology consultation to be considered for possible nonurgent EGD. 2. Wall thickening of the ascending colon is also present to a much more limited extent and severity. This is most likely related, which could favor an infectious or inflammatory etiology to the gastritis. 3. Circumferential bladder wall thickening could be due to underdistention or cystitis. Correlate with urinalysis. 4. Bronchitis at the lung bases. Electronically signed by: Eron Tong M.D. 10/24/2019 7:[address] angio chest PE protocol CLINICAL HISTORY: 64 years-old Female presenting with atypical chest pain, clinical concern for pulmonary embolus. TECHNIQUE: Multidetector CT angiography of the chest was performed after administration of intravenous contrast. 3-D volumetric and/or maximum intensity projection (MIP) images were subsequently reconstructed for review. IV contrast: 118 mL of Optiray 320. One or more dose lowering techniques were used consistent with the principles of ALARA (as low as reasonably achievable), including au tomatic exposure control, mA or kV adjustment to individual patient size, and/or use of iterative reconstruction. COMPARISON: None. CT DOSE (mGy.cm): The estimated cumulative dose is 486.72 mGy.cm. FINDINGS: Bonded Strand Operator topogram: Unremarkable. Pulmonary vasculature: The study is adequate for assessment of the pulmonary vascular tree. No filling defect within the pulmonary arteries to suggest embolus. Main pulmonary artery is not enlarged. No flattening of the interventricular septum. No intracardiac filling defect. No reflux of contrast into the hepatic veins. Remaining chest: Soft tissues: Normal thyroid and thoracic inlet. No axillary, supraclavicular, mediastinal, or hilar lymphadenopathy. Normal aorta. Normal heart size. No pericardial or pleural effusion. Trace hiatal hernia. Suspected extensive submucosal edema and wall thickening of the stomach. Mild wall thickening of the distal esophagus is also suggested. Lungs and airways: No pneumothorax. There is patent. Diffuse moderate bronchial wall thickening. Pulmonary arteries are not significantly enlarged relative to adjacent bronchi. No interlobular septal thickening. Trace centrilobular upper lobe predominant emphysema. No focal infiltrate or nodule. Musculoskeletal: Normal osseous structures. IMPRESSION: 1. No evidence of pulmonary embolus. 2. Emphysema. 3. Diffuse bronchial wall thickening could relate to bronchitis in the setting of smoking related lung injury or an infectious bronchitis or reactive airways disease. Electronically signed by: Eron Tong M.D. 10/24/2019 7:[address] head/brain wo con CLINICAL HISTORY: 64 years-old Female presenting with Stroke evaluation, new onset seizures, inability to see. TECHNIQUE: Multidetector CT imaging of the head was performed without the use of intravenous contrast. IV contrast: None. One or more dose lowering techniques were used consistent with the principles of ALARA (as low as reasonably achievable), including automatic exposure control, mA or kV adjustment to individual patient size, and/or use of iterative reconstruction. COMPARISON: None. CT DOSE (mGy.cm): The estimated cumulative dose is 1114.73. FINDINGS: Bonded Strand Operator topogram: Unremarkable. Ventricles and sulci normal in size. Limited evaluation for hemorrhage given residual intravascular contrast from the recent contrast load. Hyperattenuation within the sulci at the right frontoparietal vertex is therefore indeterminate (series 2 image 25). Similar findings elsewhere suggest that this represents intravascular contrast. Brain parenchyma normal in appearance with preserved trivedi-white differentiation. No acute territorial infarct. No mass effect or midline shift. No extra-axial fluid collection. Paranasal sinuses and mastoid air cells clear. Calvarium intact. IMPRESSION: 1. Limited evaluation by the recent contrast load. No gross acute intracranial pathology. A follow-up noncontrast CT head is recommended depending on the level of clinical concern in 12 to 24 hours to allow sufficient excretion of contrast from the vasculature to improve sensitivity of the exam. Electronically signed by: Eron Tong M.D. 10/24/2019 10:[address] angio head w con CLINICAL HISTORY: 64 years-old Female presenting with Pt unable to see. TECHNIQUE: Multidetector CT angiography of the head was performed after the administration of intravenous contrast. 3-D volumetric and/or maximum intensity projection (MIP) images were subsequently reconstructed for review. IV contrast: 118 mL of Optiray 320. One or more dose lowering techniques were used consistent with the principles of ALARA (as low as reasonably achievable), including automatic exposure control, mA or kV adjustment to individual patient size, and/or use of iterative reconstruction. COMPARISON: None. CT DOSE (mGy.cm): The estimated cumulative dose is 1114.73 mGy.cm. FINDINGS: Bonded Strand Operator topogram: Unremarkable. Anterior circulation: Intracranial portions of the internal carotid arteries patent to the level of the termini. Anterior cerebral arteries patent. Middle cerebral arteries patent. Anterior communicating artery patent. Posterior circulation: Codominant vertebral arteries. Intradural portions of the vertebral arteries patent. Posterior inferior cerebellar arteries patent. Basilar artery patent. Anterior inferior cerebellar arteries poorly visualized. Superior cerebellar arteries patent. Posterior cerebral arteries patent. Posterior communicating arteries patent. Dural venous sinuses: Patent. Asymmetric early opacification of the left cavernous sinus. No abnormal distention of the superior ophthalmic veins. Other: Allowing for the phase of contrast, brain parenchyma within normal limits. Calvarium intact. IMPRESSION: 1. No evidence of aneurysm, focal vessel occlusion, or significant stenosis of the intracranial arteries. 2. Asymmetric early opacification of the left cavernous sinus. No additional findings to suggest the presence of a carotid cavernous fistula. This may represent normal variation with early filling. Correlate clinically. Electronically signed by: Eron Tong M.D. 10/24/2019 10:[address] angio neck with con CLINICAL HISTORY: 64 years-old Female presenting with Pt unable to see, new onset seizure. TECHNIQUE: Multidetector CT angiography of the neck was performed after the administration of intravenous contrast. 3-D volumetric and/or maximum intensity projection (MIP) images were subsequently reconstructed for review. IV contrast: 118 mL of Optiray 320. One or more dose lowering techniques were used consistent with the principles of ALARA (as low as reasonably achievable), including automatic exposure control, mA or kV adjustment to individual patient size, and/or use of iterative reconstruction. Stenosis measurements were based on NASCET-like criteria (distal lumen diameter as the denominator for stenosis measurement). COMPARISON: None. CT DOSE (mGy.cm): The estimated cumulative dose is 1114.73. FINDINGS: Bonded Strand Operator topogram: Unremarkable. Aortic arch: Normal three-vessel aortic arch with patent origins of the branch vessels. Innominate artery: Patent. Right subclavian artery: Patent. Right common carotid artery: Patent. Right internal and external carotid arteries: Right carotid bifurcation with trace calcified and noncalcified atherosclerotic plaque. This does not result in significant stenosis. Right internal and external carotid arteries widely patent. Left common carotid artery: Patent. Left internal and external carotid arteries: Left carotid bifurcation patent. Left internal and external carotid arteries widely patent. Left subclavian artery: Patent. Vertebral arteries: Codominant vertebral arteries. Origins and courses of the bilateral vertebral arteries patent. Other: Limited intracranial evaluation within normal limits. Soft tissues of the neck normal allowing for the phase of contrast. Normal cervical spine. Mild bronchial wall thickening and trace emphysema at the lung apices. This likely represents smoking-related lung injury. IMPRESSION: 1. No evidence of dissection, focal vessel occlusion, or significant stenosis of the cervical arteries. Electronically signed by: Eron Tong M.D. 10/24/2019 10:24 PM ECG Data Attestation: I personally reviewed and interpreted this ECG as follows: Indication: + vomiting Rate (beats per minute): 73 Rhythm: + sinus rhythm ECG Intervals/blocks: + Short MA and + Normal QT-c (QTC is 434) ECG [place]: + Normal ECG ST segments: no ST depression and no ST elevation Blood Pressure Blood Pressure Findings: Elevated blood pressure Blood Pressure Disposition: Referred to patients primary care provider MDM Narrative This is a 65-year-old female who presents emergency department complaining of nausea and vomiting. The patient reports she has had nausea and vomiting that has been ongoing for the past several months. Using shared medical decision making with patient and family decision was made to send the patient for CAT scan the abdomen. The patient also had an elevation in her d-dimer therefore she was sent for CAT scan of the chest. She was given a normal saline bolus and started on Rocephin for a UTI. Patient's potassium was found to be grossly low therefore she was given potassium as well as Zofran and then an additional dose of Zofran with Reglan. As the patient was being ready to be discharged she began having symptoms of not being able to see and then had a full tonic-clonic seizure. At this point she was given 2 mg of Ativan and loaded with Keppra. I did discuss the case with the hospitalist service who did agree to see the patient. Patient family were in agreement with the treatment plan. Impression & Plan Vomiting, Acute hypokalemia Discharge Plan Visit Data *Final* Discharge Date/Time: 10/24/19 23:55 Chief Complaint: Illness Stated Complaint: SICK TO STOMACH, CANT EAT, LIGHTHEADED ED Provider: Panchito Magallon Discharge Problem: Vomiting, Acute hypokalemia Patient Disposition: Admitted As Inpatient Condition: Good Discharge Instructions Interventions: ED Discharge Assessment Last Done: 10/24/19 23:55 Discharge Problem: Vomiting Qualifiers: Vomiting type: unspecified Vomiting Intractability: unspecified Nausea presence: unspecified Qualified Code(s): R11.10 - Vomiting, unspecified The scribe's documentation has been prepared under my direction and personally reviewed by me in its entirety. I confirm that the note above accurately reflects all work, treatment, procedures, and medical decision making performed by me.
[2019-10-25] MEDS: levETIRAcetam 500 MG TAB PO SCH (21:14)
[2019-10-26] MEDS: NSS + 20MEQ KCL 20 MEQ/1,000 ML BAG IV SCH (06:06)
[2019-10-26] MEDS ORDERED: LEVOTHYROXINE SODIUM 75 MCG TABLET PO SCH (06:30)
[2019-10-26 06:58] LABS: BUN Creatinine Ratio 15.2 (10-20); Calcium 7.7 mg/dl (8.5-10.1); Creatinine Clr Calc Pharmacy 46.4 ml/min; Est GFR (African American) 71.7; Est GFR (Non-African American) 61.8; Potassium 4.3 mmol/L (3.5-5.1)
[2019-10-26 07:00] LABS: Thyroid Stimulating Hormone 3.35 uIu/ml (0.300-4.500)
[2019-10-26] MEDS ORDERED: CALCIUM GLUCONATE 10% 1,000 MG in SODIUM CHLORIDE 0.9% 50 ML IV STA (07:40)
[2019-10-26] MEDS ORDERED: MAGNESIUM SULFATE / D5W 1 GM/100 ML BAG IV ONE (07:40)
[2019-10-26] MEDS: levETIRAcetam 500 MG TAB PO SCH (08:03)
[2019-10-26] MEDS ORDERED: ATORVASTATIN 20 MG TAB PO SCH (09:00)
--- NOTE | 2019-10-26 09:58 | Discharge Summary ---
Date of Service October 26, 2019 Admission HPI Per Admitting Provider The patient is a 64-year-old female with a past medical history including GERD, hyperlipidemia and hypothyroidism, who presents to the emergency department with nausea and vomiting over the past 2 to 3 days, with the addition of blurred vision today. At the time of my examination, the patient is obtunded, not responsive, and information is provided by her significant other. Admission Exam Per Admitting Provider The patient is obtunded, nonresponsive post seizure. Well developed and well nourished, normocephalic and atraumatic, lying in bed and in no acute distress. HEENT--PERRL, EOMI, mucous membranes and oropharynx dry. Neck--supple. No JVD. No bruits. Thyroid normal, trachea midline, no adenopathy. Heart--normal S1 and S2. No murmurs, rubs or gallops. Lungs--clear bilaterally, no respiratory distress, no accessory muscle use. Abdomen--normal bowel sounds and soft. Nontender. Nondistended. Extremities--no cyanosis or clubbing. No edema. Dermatologic--normal skin turgor, normal color, no abnormal lymph nodes, no rash. Neurologic--cranial nerves II through XII grossly intact. Rheumatologic--normal range of motion. Psychiatric--obtunded and unresponsive Principal Diagnosis Posterior Reversible Encephalopathy Syndrome Discharge Exam Constitutional WD/WN, vitals as above Eyes PERRL, conjunctivae normal, anicteric sclerae normal visual rodriges by confrontation ENMT external ear and nose normal, oropharynx normal Neck trachea midline, no thyromegaly Respiratory normal respiratory effort, lungs clear to auscultation Cardiovascular RRR, no murmur, no edema Heart Sounds: normal S1 and normal S2 Extremities: no calf tenderness and no edema Gastrointestinal (Abdomen) normal bowel sounds, soft, nontender, no hepatosplenomegaly Musculoskeletal no cyanosis or clubbing, extremities motor strength 5/5 Skin no rashes, warm and dry Neurologic patellar DTR's 2+ bilat, sensation intact moves all extremities and awake; not confused and not obtunded Speech / Cognition: normal speech Motor/Sensory: no tremor and normal movement Cranial Nerves: PERRL, normal accommodation, EOM intact bilaterally (R CN palsy, but otherwise intact), normal facial strength, tongue midline, normal gag reflex, normal hearing, able to rotate head bilaterally, able to elevate shoulders bilaterally and symmetric palate elevation Coordination: normal [id number] test and normal rapid alternating movements Psychiatric A+Ox3, euthymic affect Discharge Data Allergies Allergy/AdvReac Type Severity Reaction Status Date / Time metoclopramide [From Reglan] Allergy Seizure Verified 10/24/19 22:55 Consultations 10/24/19 22:19 ED Decision to Admit Stat 10/25/19 00:52 Consult Case Management - Discharge Planning Routine Consult Neurology Routine 10/25/19 20:42 Consult [facility] orthopedic nurse Routine Ordered Studies 10/24/19 17:01 CT abd pelvis IV con only Stat 10/24/19 17:31 CT angio chest PE protocol Stat 10/24/19 21:37 CT head/brain wo con Stat 10/24/19 21:38 CT angio head w con Stat CT angio neck with con Stat 10/25/19 06:21 MR brain seizure wo con Routine Hospital Course (1) PRES (posterior reversible encephalopathy syndrome): Patient is a 64 year old female with PMHx HLD and Hypothyroidism that had a witnessed seizure like activity while preparing for discharge at the ED. Seizure Like activity 2/2 PRES -Seizure like activity noted while patient was in being discharged in ED. -Patient's noted that she had been having abnormal vision the past day as well as her N/V symptoms -IV Keppra given while patient was in the ED. -Neurology consulted, appreciate recs -MIKAL screen, RF, ANCA, Cryoglobulins, SSA/SSB labs ordered -IV Labetalol 10mg PRN Systolic BP >160 -Seizure precautions, Keppra 500mg BID started - will discuss tapering off at outpatient appointment -DMV form, no driving x6 months -Repeat MRI Brain w and w/o contrast in 4-6 weeks after d/c -Follow up neuro clinic 6-8 weeks -MRI Brain without contrast showed signs concerning for Posterior Reversible Encephalopathy Syndrome (PRES) and R occipital hemorrhage -UDS ordered to screen any toxic abnormalities that may have contributed to symptoms. -EEG ordered showing slight abnormality with generalized slowing with a borderline low PDR suggestive of generalized process such as encephalopathy, toxic-metabolic dysfunction, or generalized insult. No seizures or epileptiform discharges seen. -Patient follow up with Neuro in 4-6 weeks, Brain MRI w/ and w/o prior, Keppra 500mg BID Acute Hypokalemia -Placed on NSS+KCL 20mEq at 100mL/hr on admission -K 4.3 today, resolved. Gastric Wall Thickening -Extensive gastric wall thickening and submucosal edema consistent with gastritis on Abdomen/Pelv CT -Consider GI consult for future nonurgent EGD. Elevated D-Dimer -D-Dimer Elevated on admission. -CT of chest negative for PE. Hypothyroidism -Continued home levothyroxine HLD -Continued home atorvastatin Nausea and Vomiting -Resolved -Zofran PRN nausea FEN/GI - Heart Healthy, dc'd fluids at discharge Code - Full DVT - Stopped Heparin 2/ concern for R occipital hemorrhage Dispo - Discharge Home (2) Observed seizure-like activity: (3) Acute hypokalemia: (4) Gastric wall thickening: (5) Elevated d-dimer: (6) Hypothyroidism (acquired): (7) Hyperlipidemia: (8) Vomiting: Total Time Total Time Spent Total Time Spent (In Minutes): see attending attestation Discharge Plan Discharge Items Patient Disposition: Home - Self-Care Reason For Visit: SEIZURE-LIKE ACTIVITY Discharge Diagnosis: posterior reversible encephalopathy syndrome Condition on Discharge: Good Activity: Per Instructions section Non-emergency contact: Primary Care Provider and Neurologist Call non-emergency contact if: you have any medication questions and your symptoms worsen Follow-up/Referrals: [facility] [place] Radiology [Provider Group] - 12/14/19 9:30 am (Please, follow up at [facility] on FridayDecember 14 at 10:00 am (arrive 9:30 am) for an MRI of your brain. *Please, register in the main lobby of the hospital at 9:30 am. There is no special prep needed. You can eat and drink normally, before the test. If you need to change this appointment, call Central Scheduling at [phone].) Bronwyn Newman CRNP [Nurse Practitioner] - 10/29/19 10:45 am (Please, follow up at [facility] Gastroenterology Office with Bronwyn ARGUETA on FridayOctober 29 at 11:00 am (arrive 10:45 am). *The office is located at [facility] in [place]. If you need to change this appointment, call the office at [phone].) Kayy Perkins MD [Physician] - 12/23/19 10:45 am (Please, follow up at [facility] Neurology Office with Dr. Perkins on December 23 at 11:00 am (arrive 10:45 am). *The office is located at [address] [place] [address] in [place]. If you need to change this appointment, call the office at [phone].) Jerrod Sherman [Primary Care Provider] - 11/01/19 2:30 pm (Please, follow up with Dr. Sherman on FridayNovember 01 at 2:30 pm. *If you need to change this appointment, call the office at [phone].) Diet: Regular Addtl Attending Provider Instructions: Ms. Kirk, you were seen and evaluated at [facility] from the dates of 10/24/19- 10/26/19 for seizure-like activity that you developed while being discharged from the ED. MRI imaging of your brain showed that you had a syndrome known as PRES or Posterior Reversible Encephalopathy Syndrome. PRES presents itself as visual changes, confusion, headache, and occasionally seizures. You were evaluated by Neurology while in the hospital and they believe that PRES was likely the reason for your seizure. Since there is no clear reason as to your initial episode of PRES, we would like you to follow up with Neurology (Dr. Perkins) in the next 4-6 weeks. We would also like you to have another MRI of your brain (with and without contrast) prior to that appointment. You will also be discharged with a medication that is used to prevent seizures (Keppra) and will discuss tapering off the medication at your future neurology appointment. Also noted on your Abdomen CT scan was a thickening of your stomach wall. We would like you to follow up with Gastroenterology in the outpatient setting to be evaluated as to whether or not an EGD (scope of your esophagus and stomach) would be appropriate. Please see the following instructions below: 1) Follow up with your PCP in the next week 2) Follow up with Neurology in 4-6 weeks 3) Have a repeat Brain MRI with and without contrast in the next 4-6 weeks, prior to your Neurology appointment. 4) Follow up with Gastroenterology for evaluation of need for an outpatient EGD. 5) You are being prescribed an anti-seizure medication (Keppra 500mg by mouth twice a day). Please take it as prescribed. If you have any questions please feel free to call the hospital, your PCP, your neurologist, or return to the ED for evaluation. Pending Studies at Discharge: No Stand-Alone Forms: My [facility], Smoking Cessation Medications and DC Order Prescriptions: New levetiracetam 500 mg tablet 500 mg PO BID 30 Days Qty: 60 RF: 1 Continued atorvastatin 20 mg Tablet 20 mg PO DAILY RF: 0 levothyroxine [Synthroid] 75 mcg Tablet 75 mcg PO DAILY RF: 0 Discharge Orders: Discharge Order (Routine); Ordered 10/26/19 Ordered By: David Hsu Admission Data Admit Date/Time: 10/24/19 23:13 Attending Provider: Amparo Forrester Admit Provider: Christiano Jimenez Primary Care Provider: Jerrod Sherman Other Providers: Christiano Jimenez ; Andre Bolanos Other Interventions: Discharge Summary Assessment (RN) Last Done: 10/26/19 12:05 DC Date/Time DO NOT enter until pt leaves facility: 10/26/19 12:32 Supervising Physician Co-Signing Physician Notes Resident Physician Supervision Note: I independently interviewed and examined the patient and verified the rodriguez history and physical, reviewed labs and image studies, discussed the case with the resident Dr. Hsu and agree with the findings and care plan.
[2019-10-27 12:09] LABS: Anti-SS-A <1.0 NEG AI (<1.0 NEG); Anti-SS-B <1.0 NEG AI (<1.0 NEG)
[2019-10-29 12:20] LABS: ANCA Screen Negative (Negative); Anti Nuclear Antibody Screen NEGATIVE (NEGATIVE); Rheumatoid Factor <14 IU/mL (<14)
[2019-11-01 05:28] LABS: % Cryocrit DNR; Cryoglobulin, QL Negative (Negative)
== END 2019-10-26 12:32 | disposition home or self-care (01) | DRG 72 ==
LOC: ED 16:27 → SUATTDRO 23:13 → 2N 23:13